=== PATIENT | female | born 1950 | race Caucasian/White ===

== ENCOUNTER → 2017-02-07 | Outpatient (CLI) | payer MEDICARE, OTHER ==
[~2017-02-07] MED LIST: ADVIL200 MG PO; ASPIR-TRIN325 MG PO; ASPIRIN325 MG PO; CORRECTOL5 MG PO; DELTASONE5 MG PO; DURAGESIC 25MC25 MCG TRANS; FLAGYL500 MG PO; FLEXERIL10 MG PO; GUAIFEN-CODEIN118 ML PO; LASIX40 MG PO; MAG119MX PO; MS CONTIN15 MG PO; NAPROSYN500 MG PO; OSCAL500 MG PO; PAIN RELIEVER325 MG PO; PROTONIX40 MG PO; SLEEP AID25 M1 PO; SLOW-MAG (64 MG1 TAB PO; STOOL SOFTENER100 MG PO; TYLENOL325 MG PO; ULTRAM50 MG PO; VANCOMYCIN125 MG/2.5 PO; ZOFRAN4 MG PO
== END | disposition disaster alternative care site (69) ==
LOC: GKIC 11:36
DX: C79.89 Secondary malignant neoplasm of other specified sites (principal); C79.51 Secondary malignant neoplasm of bone; C00-D49 Neoplasms; M89.8X8 Other specified disorders of bone, other site
CPT/HCPCS: A9552

== ENCOUNTER → 2017-02-20 | Outpatient (CLI) | payer MEDICARE, OTHER | LOC: GRAD 02-13 16:00 | DX: C00-D49 Neoplasms (principal); C79.51 Secondary malignant neoplasm of bone | CPT/HCPCS: A9577 ==

== ENCOUNTER → 2017-03-01 | Outpatient (CLI) | payer MEDICARE, OTHER ==
[2017-03-01 12:04] LABS: BASOPHIL # 0.1 K/uL (0.0-0.2); BASOPHIL % 1.8 %; EOSINOPHIL # 0.1 K/uL (0.0-0.5); EOSINOPHIL % 3.1 %; HEMATOCRIT 39.6 % (33.0-46.0); HEMOGLOBIN 12.1 g/dL (10.0-15.0); IMMATURE GRANULOCYTE % 0.5 %; LYMPHOCYTE # 0.8 K/uL (0.8-4.0); LYMPHOCYTE % 19.1 %; MCH 26.2 pg (27.0-34.0); MCHC 30.6 gm/dL (32.0-36.5); MCV 85.9 fl (83.0-98.0); MONOCYTE # 0.6 K/uL (0.0-1.0); MONOCYTE % 15.1 %; MPV 9.3 fl (9.4-12.4); NEUTROPHIL # (ANC) 2.4 K/uL (1.8-7.8); NEUTROPHIL % 60.4 %; NRBC % 0 /100WBC (0-0.00); PLATELET COUNT 327 K/uL (150-450); RBC 4.61 M/uL (3.50-5.50); RDW-CV 14.3 % (11.9-14.6); WBC 3.9 K/uL (4.0-11.0)
[2017-03-01 12:25] LABS: ALBUMIN 3.3 gm/dL (3.5-5.0); ALK PHOS 147 IU/L (33-138); ALT 31 IU/L (12-78); ANION GAP 11.1 (10.0-19.0); AST 33 IU/L (10-40); BLOOD UREA NITROGEN 11 mg/dL (6-24); CALCIUM 8.7 mg/dL (8.5-10.5); CHLORIDE 109 mMol/L (96-110); CO2 26 mMol/L (22-32); CREATININE 0.8 mg/dL (0.5-1.1); ESTIMATED GFR (MDRD EQUATION) > 60; POTASSIUM 4.1 mMol/L (3.7-5.1); SODIUM 142 mMol/L (135-145); TOTAL BILIRUBIN 0.4 mg/dL (0.0-1.5); TOTAL PROTEIN 7.4 g/dL (6.0-8.4)
== END | disposition disaster alternative care site (69) ==
LOC: GLAB 11:46
PROVIDERS: Family Medicine
DX: C00-D49 Neoplasms (principal); C79.51 Secondary malignant neoplasm of bone; R07.9 Chest pain, unspecified; R50.9 Fever, unspecified; R53.1 Weakness; R68.89 Other general symptoms and signs

== ENCOUNTER 2017-04-03 11:00 | Inpatient (IN) | payer MEDICARE, OTHER ==
[~2017-04-03] VITALS: Ht 170.2 cm; Wt 95.4 kg
--- NOTE | ~2017-04-03 | HP ---
PATIENT'S NAME: DWAINE FLOWERS [facility] AGE: 66 Y [address] ROOM: [place] [address] LOCATION: [facility] [place] ADMIT DATE: 04/03/2017 History & Physical DISCHARGE DATE: FAMILY PHYSICIAN: Dread Galeana MD ATTENDING PHYSICIAN: Chato Lane DATE OF SERVICE: CHIEF COMPLAINT: Neutropenia with fever. HISTORY OF PRESENTING ILLNESS: This 66-year-old white female with history of metastatic adenocarcinoma from the [place]'s gland, currently on chemotherapy and radiation, was sent to [facility] today by Dr. Lane with neutropenia and fever. Briefly, she was diagnosed with a gynecologic tumor in June 2016. She was subsequently determined to have adenocarcinoma originating in the [place]'s gland. She does have diffuse metastases to the bones. She has been undergoing radiation treatments and chemotherapy. Her last radiation treatment was on Saturday of this week, and she had chemo on Saturday. She complains that she has been feeling unwell for the last 9 days. She states that she was told that she would only feel sick for 4 days but just does not seem to be improving. She is noticing some increasing shortness of breath, fevers, chills, and intractable cough. Cough is productive of a thick phlegm, which she thinks is emanating from her esophagus. She also complains of significant pain in the mid chest with swallowing. She denies headache but does complain of feeling dizzy. No significant abdominal pain. Stools have been irregular. She last stooled a couple of days ago. She denies any urinary complaints. No numbness or tingling in her extremities, but she does have some diffuse itching and a rash over her chest and back. ALLERGIES: PENICILLIN AND LEVOFLOXACIN. ILLNESSES: 1. 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 2. Cervical cancer by history. 3. Obesity, status post gastric bypass in 1999. 4. Gastroesophageal reflux disease. 5. Chronic constipation. CURRENT MEDICATIONS: PATIENT'S NAME: DWAINE FLOWERS [facility] AGE: 66 Y [address] ROOM: [place] [address] LOCATION: [facility] [place] ADMIT DATE: 04/03/2017 History & Physical DISCHARGE DATE: FAMILY PHYSICIAN: Dread Galeana MD ATTENDING PHYSICIAN: Chato Lane 1. Carboplatin AUC 6 and paclitaxel every 21 days x6 cycles. 2. Fentanyl patch 25 mcg, change q.72 hours. 3. Nexium 20 mg p.o. daily. 4. T3 oral liquid p.r.n. 5. Decadron 4 mg before chemo. 6. Diclofenac 75 mg p.o. daily p.r.n. 7. Motrin 200 mg p.o. t.i.d. p.r.n. 8. Senna 2 tablets p.o. daily p.r.n. 9. Toviaz 8 mg p.o. daily. 10. Tramadol 50 mg p.o. q.i.d. p.r.n. FAMILY HISTORY: Significant for lung cancer in her father. Mother had osteoporosis and emphysema. SOCIAL HISTORY: She is a nonsmoker. She is and lives in [place]. She has no significant history of alcohol use. REVIEW OF SYSTEMS: As per HPI. All other organ systems reviewed and are negative. OBJECTIVE: VITAL SIGNS: Temperature 98.2, pulse 92, respirations are 26, blood pressure 100/67, O2 saturation 96% on room air. Weight is 209.6 pounds. GENERAL: She is frail, anxious, visibly dyspneic, but in no acute distress. SKIN: Supple, pink, warm, and dry. There is diffuse hyperemia about the chest and back with a diffuse maculopapular eruption. No vesiculations or bulla. HEENT: Otherwise, normocephalic. Sclerae nonicteric. Pupils equal, round, and reactive to light and accommodation. Extraocular movements appear intact. Nasal turbinates normal in appearance. Oropharynx clear. Mucous membranes are pink and moist. NECK: Supple. No masses or adenopathy. No thyromegaly. No JVD. CHEST: Wall is symmetrical. There is a port in the left chest. HEART: Regular with occasional extrasystoles. LUNGS: Diminished at the bases, coarse. No crackles or wheezes. No areas of consolidation. ABDOMEN: Soft, nontender. Bowel sounds present. No mass or hepatosplenomegaly. EXTREMITIES: Display trace pitting edema. No cyanosis. NEUROLOGICAL: Anxious but no focal deficits. LABORATORY AND X-RAY DATA: CBC from the clinic showed white blood cell count of 0.42, absolute neutrophil PATIENT'S NAME: DWAINE FLOWERS [facility] AGE: 66 Y [address] ROOM: [id number] [place], [place] [address] LOCATION: [facility] [place] ADMIT DATE: 04/03/2017 History & Physical DISCHARGE DATE: FAMILY PHYSICIAN: Dread Galeana MD ATTENDING PHYSICIAN: Chato Lane count of 200, hemoglobin is 11.0, hematocrit 32.6, platelets 124. Chemistries reveal BUN and creatinine of 8 and 0.6 respectively, sodium and potassium of 129 and 3.0, chloride and CO2 are 95 and 23, calcium was 8.7. AST and ALT of 40 and 51 respectively, bilirubin is 0.9. Glucose 132. ASSESSMENT AND PLAN: 1. Fever with neutropenia. We will admit to inpatient care. Dr. Lane has provided admission orders including antibiotic therapy with IV Zosyn, vancomycin, as well as antiviral therapy with acyclovir. Fluconazole is a reasonable addition given the symptoms of esophagitis (see below). We will provide supportive cares including some IV fluids and symptomatic treatment with Zofran for relief of nausea. We will await cultures and follow up on those when they are available. 2. Odynophagia with dysphagia, suspect severe esophagitis. Differential diagnosis includes radiation esophagitis versus infectious source. We will continue with some supportive cares and symptomatic treatments as outlined above. Additionally, we will add antibiotic therapy and antifungal therapy. If she is not improving, she may require endoscopic evaluation. 3. Dyspnea, subjective. She is saturating normally. Try to manage her pain and cough symptoms as above. Consider additional imaging evaluation if she is not improving. 4. Metastatic adenocarcinoma originating in the [place]'s gland, on chemotherapy and radiation. Plan to have Hematology continue to follow clinically. 5. Rash, not otherwise specified. I suspect this is primarily radiation induced. We will provide some symptomatic measures and clinical monitoring. 6. Moderate protein-calorie malnutrition. We will try to encourage balanced intake. We will start with clear liquids and advance as she tolerates. 7. Morbid obesity, status post gastric bypass surgery. As above, we will work toward long-term strategies for balanced dietary intake, increased exercise as she can tolerate, etc.. 8. Deep venous thrombosis prophylaxis. We will use low-dose Lovenox while she is inpatient. ZOE MD CARO TILLMAN/haroldo /[id number] D: [id number] T: [id number] HISTORY & PHYSICAL
--- NOTE | ~2017-04-03 | DS ---
PATIENT'S NAME: DWAINE FLOWERS [facility] AGE: 66 Y [address] ROOM: [place] [address] [place] [facility] [place] DATE: 04/03/2017 Discharge Summary DISCHARGE DATE: 04/06/2017 FAMILY PHYSICIAN: Dread Galeana MD ATTENDING PHYSICIAN: Chato Lane PRINCIPAL DIAGNOSES: 1. Neutropenic fever. 2. Metastatic adenocarcinoma, on chemo and radiation. 3. Gastroesophageal reflux disease. 4. Moderate obesity. 5. Odynophagia. BRIEF HOSPITAL COURSE: This is a 66-year-old female with history of metastatic adenocarcinoma from [place]'s gland, currently on chemo and radiation, presents from Dr. Lane's office with complaints of a fever while on chemo and radiation. The patient was admitted for workup of neutropenic fever. The patient had stayed afebrile past 72 hours. Workup including blood cultures, urinalysis, and urine studies have all turned out negative and did not show any obvious source of an infection. The patient at this point feels well and did not have any temperature spikes during her hospitalization. At this point, I am in agreement with Dr. Barrera's recommendation. The patient will be discharged without any antibiotics or antifungals, and she will follow up with Dr. Lane as previously scheduled. The patient is being discharged home in satisfactory condition. PHYSICAL EXAMINATION: GENERAL: The patient is awake, alert, oriented x3, in no acute distress. CHEST: Clear to auscultation bilaterally. HEART: S1, S2. Regular rate and rhythm. ABDOMEN: Soft, nontender, distended. EXTREMITIES: Trace edema. MEDICATIONS: Per JAN. DISPOSITION: Home, and will follow up with Dr. Lane. Less than 30 minutes was spent in discharge planning and facilitating. MD PJ RASCON/katarzynal PATIENT'S NAME: DWAINE FLOWERS [facility] AGE: 66 Y [address] ROOM: [place] [address] [place] [facility] DATE: 04/03/2017 Discharge Summary DISCHARGE DATE: 04/06/2017 FAMILY PHYSICIAN: Dread Galeaan MD ATTENDING PHYSICIAN: Chato Lane /[id number] d: 04/07/17 0111 t: 04/08/17 1202, DISCHARGE SUMMARY
[~2017-04-03 11:00] MED LIST changes: -ADVIL200 MG PO; -ASPIR-TRIN325 MG PO; -ASPIRIN325 MG PO; -CORRECTOL5 MG PO; -DELTASONE5 MG PO; -DURAGESIC 25MC25 MCG TRANS; -FLAGYL500 MG PO; -GUAIFEN-CODEIN118 ML PO; -LASIX40 MG PO; -MAG119MX PO; -MS CONTIN15 MG PO; -OSCAL500 MG PO; -PAIN RELIEVER325 MG PO; -PROTONIX40 MG PO; -SLEEP AID25 M1 PO; -SLOW-MAG (64 MG1 TAB PO; -STOOL SOFTENER100 MG PO; -TYLENOL325 MG PO; -VANCOMYCIN125 MG/2.5 PO; -ZOFRAN4 MG PO
--- NOTE | 2017-04-03 14:07 | NUR ---
PT is 66 y/o female admit for neutropenic fever for . Allergy to levaquin,PCN,and lactose intolerant. Red and yellow bracelets on. Resides at home with her . 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 Pt came from 's office today. Pt states she went to our ED on Saturday am with a fever of 101. She received IV fluids and was sent home. This am her fever was 102. While at 's office she received IV fluids and Zofran for nausea, and an IV antibiotic. Pt alert and oriented x3. and daughter at bedside.
[2017-04-03] MEDS ORDERED: GUAIFEN-CODEIN118 ML PO (14:37)
[2017-04-03] MEDS ORDERED: DURAGESIC 25MC25 MCG TRANS (14:38)
[2017-04-03] MEDS ORDERED: MAG119MX PO (14:41)
--- NOTE | 2017-04-03 19:20 | NUR ---
Significant event: Patient is alert and oriented x2. VSS. No fever. On room air. Gets short of breath with exertion. Does ambulate with walker and stand by assist. Has her own wash clothes that she uses for pads due to dribbling and she does not tolerate the plastic from regular pads/briefs. She does have an open area in the crack of her bottom, cleaned and moisture barrier applied. Has port to right chest with fluids running at 75mls/hr. Did have Zosyn 1450. Has been nauseous and vomiting small amounts. Does take meds whole, but it does take awhile to get them down. Is on a clear liquid diet. Has a small rash to mid back and chest from taking Levaquin, is healing. Cooperative with cares.
--- NOTE | 2017-04-04 04:50 | NUR ---
Significant Event:pt is a/o x3. pt is a 1 assist w/ walker and gaitbelt to bathroom. pt in neutropenic precautions. pt can run slightly tachycardic at times. pt has port to r chest w/ ns@ 75ml/hr. pt c/o nausea and got compazine w/ evening meds. pt does have open sore to coxyc. pt is clear liquid diet.pt has been afebrile and vss. Follow up:monitor for fevers
[2017-04-04 06:35] LABS: ALBUMIN 2.3 gm/dL (3.5-5.0); ALK PHOS 176 IU/L (33-138); ALT 31 IU/L (12-78); ANION GAP 13.6 (10.0-19.0); AST 26 IU/L (10-40); BLOOD UREA NITROGEN 6 mg/dL (6-24); CALCIUM 7.7 mg/dL (8.5-10.5); CHLORIDE 103 mMol/L (96-110); CO2 23 mMol/L (22-32); CREATININE 0.6 mg/dL (0.5-1.1); ESTIMATED GFR (MDRD EQUATION) > 60; SODIUM 137 mMol/L (135-145); TOTAL BILIRUBIN 0.6 mg/dL (0.0-1.5); TOTAL PROTEIN 5.7 g/dL (6.0-8.4)
[2017-04-04 06:36] LABS: POTASSIUM 2.6 mMol/L (3.7-5.1)
[2017-04-04 06:42] LABS: HEMOGLOBIN 8.7 g/dL (10.0-15.0); MCV 79.6 fl (83.0-98.0); MPV 11.1 fl (9.4-12.4); RDW-CV 15.4 % (11.9-14.6)
[2017-04-04 06:45] LABS: HEMATOCRIT 26.9 % (33.0-46.0); MCH 25.7 pg (27.0-34.0); MCHC 32.3 gm/dL (32.0-36.5); PLATELET COUNT 110 K/uL (150-450); RBC 3.38 M/uL (3.50-5.50)
[2017-04-04 07:53] LABS: ABSOLUTE NEUTROPHIL CT (ANC) 0.2 K/uL (1.8-7.8); LYMPHOCYTE # 0.1 K/uL (0.8-4.0); LYMPHOCYTE % 9 %; MONOCYTE # 0.6 K/uL (0.0-1.0); SEGMENTED NEUTROPHIL # 0.2 K/uL (1.8-7.8); SEGMENTED NEUTROPHIL % 23 %
--- NOTE | 2017-04-04 14:31 | NUR ---
Significant Event: Pt denies pain. Mild chest discomfort when swallowing and mild nausea but no vomitting. Compazine IV given x2 with good relief. Up with 1 assist. Continues in neutropenic precautions. K+ level 2.6, 20meq IV given and 40meq of oral liquid given. Advanced diet to regular. Port to left chest. Follow up:
--- NOTE | 2017-04-05 04:27 | NUR ---
SIGNIFICANT EVENT: Patient alert & oriented. Neutropenic precautions. 3 mod to lg loose stools this shift - order for CDiff test therefore, isolation precautions must be initiated per policy. At 2030 potassium level was 3.4. PC to MD - 40 mEq PO K+ x1 order. Port to L) chest - IV Fluids changed to NS with 40 mEq KCl at 100. 1PA with walker to BR. Advance diet as tolerated - regular diet. Tolerating clears at this time. VSS on RA. Compazine x1, last at 1934. Tramadol x1, last at 2144. Pleasant and cooperative with cares.
[2017-04-05 09:46] LABS: HEMATOCRIT 28.6 % (33.0-46.0); HEMOGLOBIN 9.2 g/dL (10.0-15.0); MCH 26.1 pg (27.0-34.0); MCHC 32.2 gm/dL (32.0-36.5); MPV 9.8 fl (9.4-12.4); PLATELET COUNT 128 K/uL (150-450); RBC 3.53 M/uL (3.50-5.50); RDW-CV 15.9 % (11.9-14.6); WBC 5.6 K/uL (4.0-11.0)
[2017-04-05 10:04] LABS: ALBUMIN 2.5 gm/dL (3.5-5.0); ALK PHOS 170 IU/L (33-138); ALT 31 IU/L (12-78); ANION GAP 11.7 (10.0-19.0); AST 24 IU/L (10-40); BLOOD UREA NITROGEN 3 mg/dL (6-24); CALCIUM 7.8 mg/dL (8.5-10.5); CHLORIDE 109 mMol/L (96-110); CO2 22 mMol/L (22-32); CREATININE 0.8 mg/dL (0.5-1.1); ESTIMATED GFR (MDRD EQUATION) > 60; POTASSIUM 3.7 mMol/L (3.7-5.1); SODIUM 139 mMol/L (135-145)
[2017-04-05 10:10] LABS: TOTAL BILIRUBIN 0.4 mg/dL (0.0-1.5)
[2017-04-05 10:32] LABS: BANDED NEUTROPHIL # 1.1 K/uL (0.0-0.1); BANDED NEUTROPHILS % 19 %; LYMPHOCYTE # 0.4 K/uL (0.8-4.0); LYMPHOCYTE % 8 %; SEGMENTED NEUTROPHIL # 2.9 K/uL (1.8-7.8); SEGMENTED NEUTROPHIL % 52 %
--- NOTE | 2017-04-05 12:43 | NUR ---
PATIENT DOING WELL. UP TO BATHROOM WITH STANDBY ASSIST. COMPAZINE AT 0730 FOR NAUSEA WITH RELIEF, DENIES PAIN, FENTANYL PATCH TO RIGHT ARM INTACT. LEFT CHEST PORT INFUSING AND PATENT. NEUTROPENIC PRECAUTIONS. C DIFF NEGATIVE. WBC 5.6. ANC 4.0. K+3.7. PATIENT HAS RASH TO BACK, LOTION APPLIED WITH RELIEF OF DISCOMFORT.
--- NOTE | 2017-04-05 15:50 | NUR ---
Significant Event: Took over cares at 1400. Up with 1 assist to the br. had 1 very small emesis this afternoon, she said her veggie burger was dry. Immodium given at 1315 for loose stools. Port left chest. Follow up:
--- NOTE | 2017-04-05 15:50 | NUR ---
SPOKE TO PATIENT REGARDING CM AND OUR ROLE. PATIENT LIVES IN OWN HOME WITH SPOUSE AND SHE IS PLANNING ON RETURNING THERE ONCE SHE IS READY FOR DISCHARGE WITH HELP FROM HER SPOUSE AND FAMILY. PATIENT DOES NOT ANTICIPATE ANY DISCHARGE NEEDS AT THIS TIME. CM WILL CONT TO FOLLOW NEEDED.
--- NOTE | 2017-04-06 05:55 | NUR ---
SIGNIFICANT EVENT: Patient alert & oriented. VSS on RA. UA obtained - results pending. Diet is advance as tolerated. 1PA walker. Patient has not had a fever but new order to get blood cultures if temp reaches 101.3. L) chest port infusing D51/2NS with 20 KCl. VSS on RA. Pleasant and cooperative with cares.
[2017-04-06 06:31] LABS: BILIRUBIN URINE NEGATIVE (NEGATIVE); BLOOD URINE 50 /UL (NEGATIVE); COLOR URINE YELLOW (YELLOW); GLUCOSE URINE NEGATIVE (NEGATIVE); KETONE URINE NEGATIVE (NEGATIVE); LEUKOCYTES URINE NEGATIVE /UL (NEGATIVE); NITRITE URINE NEGATIVE (NEGATIVE); PROTEIN URINE NEGATIVE (NEGATIVE); SPEC GRAVITY URINE 1.015 (1.003-1.035); TURBIDITY URINE CLEAR (CLEAR); UROBILINOGEN URINE NORMAL (NORMAL)
[2017-04-06 06:39] LABS: BACTERIA URINE NEGATIVE (NEGATIVE)
[2017-04-06 07:38] LABS: HEMATOCRIT 27.8 % (33.0-46.0); HEMOGLOBIN 8.8 g/dL (10.0-15.0); MCH 25.7 pg (27.0-34.0); MCHC 31.7 gm/dL (32.0-36.5); PLATELET COUNT 139 K/uL (150-450); RBC 3.43 M/uL (3.50-5.50); RDW-CV 16.2 % (11.9-14.6); WBC 10.6 K/uL (4.0-11.0)
[2017-04-06 07:54] LABS: ALBUMIN 2.4 gm/dL (3.5-5.0); ALK PHOS 174 IU/L (33-138); ALT 28 IU/L (12-78); ANION GAP 12.1 (10.0-19.0); AST 23 IU/L (10-40); CALCIUM 7.9 mg/dL (8.5-10.5); CHLORIDE 109 mMol/L (96-110); CO2 23 mMol/L (22-32); CREATININE 0.7 mg/dL (0.5-1.1); ESTIMATED GFR (MDRD EQUATION) > 60; POTASSIUM 4.1 mMol/L (3.7-5.1); SODIUM 140 mMol/L (135-145); TOTAL BILIRUBIN 0.4 mg/dL (0.0-1.5); TOTAL PROTEIN 5.6 g/dL (6.0-8.4)
[2017-04-06 07:55] LABS: BLOOD UREA NITROGEN 1 mg/dL (6-24)
[2017-04-06 08:15] LABS: ABSOLUTE NEUTROPHIL CT (ANC) 9.2 K/uL (1.8-7.8); BANDED NEUTROPHIL # 3.6 K/uL (0.0-0.1); BANDED NEUTROPHILS % 34 %; LYMPHOCYTE # 0.5 K/uL (0.8-4.0); LYMPHOCYTE % 5 %; MONOCYTE # 0.8 K/uL (0.0-1.0); SEGMENTED NEUTROPHIL # 5.6 K/uL (1.8-7.8); SEGMENTED NEUTROPHIL % 53 %
--- NOTE | 2017-04-11 10:04 | NUR ---
Met with patient at cancer center post discharge. She is getting hydration. She states she feels better since discharge and that she is doing okay. Will continue to follow as she comes in for fluids and radiation follow up appt.
== END 2017-04-06 15:37 | disposition disaster alternative care site (69) | DRG 809 ==
LOC: GMSU 12:29
PROVIDERS: Internal Medicine; Internal Medicine Hematology & Oncology; ADMIT Family Medicine
DX: D70.9 Neutropenia, unspecified (principal); C00-D49 Neoplasms; E44.0 Moderate protein-calorie malnutrition; C79.51 Secondary malignant neoplasm of bone; E66.01 Morbid (severe) obesity due to excess calories; R13.10 Dysphagia, unspecified; R50.81 Fever presenting with conditions classified elsewhere; C53.9 Malignant neoplasm of cervix uteri, unspecified; K59.09 Other constipation; Z92.3 Personal history of irradiation; K21.0 Gastro-esophageal reflux disease with esophagitis
CPT/HCPCS: C9113; J0780; J1447; J1642; J1650; J2405; J2543; J3370; J3480; J7030; J7040; J7050; J7120

== ENCOUNTER 2017-05-07 10:37 | Inpatient (IN) | payer MEDICARE, OTHER ==
[~2017-05-07] VITALS: Ht 170.2 cm; Wt 92.5 kg
--- NOTE | ~2017-05-07 | CON ---
PATIENT'S NAME: DWAINE FLOWERS [facility] AGE: 66 Y [address] ROOM: [place] [address] [place]: [facility] [place] ADMIT DATE: 05/07/2017 Consultation DISCHARGE DATE: FAMILY PHYSICIAN: Dread Galeana MD ATTENDING PHYSICIAN: Dread Galeana DATE OF CONSULTATION: 05/07/2017 REFERRING PHYSICIAN: Dread Galeana MD REASON FOR CONSULTATION: Rectal bleeding. HISTORY OF PRESENT ILLNESS: The patient is a very pleasant 66-year-old white female, with a history of metastatic adenocarcinoma of the [place] gland. Currently, on chemotherapy. She completed her radiation therapy about two months ago. She was sent to the [facility] because of rectal bleeding. She was diagnosed with gynecological tumor in June of 2016. She was subsequently found to have adenocarcinoma arising from the [place] gland. She does have diffuse metastases to the bone. She developed rectal bleeding last night. She had several bowel movements since then. She denies any history of diarrhea. She does have some abdominal discomfort. No high-grade fevers. ALLERGIES: TO PENICILLIN AND LEVOFLOXACIN. ILLNESSES: 1. She has metastatic adenocarcinoma of the [place] gland. 2. Cervical cancer by history. 3. Obesity, status post gastric bypass in 1999. 4. Gastroesophageal reflux disease. 5. Chronic constipation. CURRENT MEDICATIONS: Include 1. Tramadol. 2. Fentanyl. 3. Diphenhydramine. 4. Ibuprofen. 5. Bisacodyl. 6. Docusate sodium. 7. Doxylamine succinate. She has been on chemotherapy, and was last given chemotherapy done on Saturday last. PATIENT'S NAME: DWAINE FLOWERS [facility] AGE: 66 Y [address] ROOM: [address] [address] LOCATION: [facility] [place] ADMIT DATE: 05/07/2017 Consultation DISCHARGE DATE: FAMILY PHYSICIAN: Dread Galeana MD ATTENDING PHYSICIAN: Dread Galeana FAMILY HISTORY: Significant for lung cancer in the father and mother with osteoporosis and emphysema. SOCIAL HISTORY: She is a non-smoker and . She lives in [place]. No significant history of alcohol use. REVIEW OF SYSTEMS: As per history of present illness. A detailed review of systems was done, and found to be negative other than what is mentioned in the history of present illness and past medical history. PHYSICAL EXAMINATION: GENERAL: Today, she is alert and awake. She appears to be in mild distress. VITAL SIGNS: Showed temperature of 98.6, heart rate of 86 per minute, respirations of 14, and blood pressure of 118/82. NECK: No masses are felt. No thyromegaly is felt. HEAD, ENT, AND ORAL CAVITY: Normal. Revealed mild pallor. No icterus. CHEST: Clear to auscultation bilaterally. No wheezing or rhonchi. CARDIOVASCULAR: S1 and S2. Peripheral pulses are palpable and normal. MUSCULOSKELETAL: No obvious injuries or deformities are seen. NEUROLOGICAL: Grossly nonfocal. RECTAL: Deferred at this time. LABORATORY DATA AND DIAGNOSTIC STUDIES: Occult blood is positive. CT of the abdomen and pelvis was done. This showed extensive neoplastic bony involvement of the pelvis and worsening of the bone appearance with non- displaced sacral fractures, and wall thickenings at the sigmoid colon and rectum, which could reflect enteritis. Chest has no acute infiltrates. Complete blood count showed WBC of 2, hemoglobin of 8.9, hematocrit of 27.9, she has platelet count of 103, and absolute neutrophil count of 0.3. Complete metabolic screen showed sodium of 132, potassium of 3.4, chloride of 104, bicarb of 22, BUN of 5, creatinine of 0.6, albumin of 2.4, total bilirubin of 0.6, ALT of 27, AST of 35, and alkaline phosphatase of 225. IMPRESSION AND PLAN: The patient with a history of rectal bleeding. It could be related to radiation proctitis. The patient probably requires a flexible sigmoidoscopy. I would do this in consultation with the oncologists. The procedure of PATIENT'S NAME: DWAINE FLOWERS [facility] AGE: 66 Y [address] ROOM: [place] [address] LOCATION: [facility] [place] ADMIT DATE: 05/07/2017 Consultation DISCHARGE DATE: FAMILY PHYSICIAN: Dread Galeana MD ATTENDING PHYSICIAN: Dread Galeana flexible sigmoidoscopy was explained in detail to the patient. All risks including, but not limited to bleeding, perforation, and possible need for surgery were explained. Informed consent was then obtained. The patient also has absolute neutropenia. I will discuss this with the oncologists. Pending their permission, from there, we will be proceeding with the above mentioned procedure. Thank you once again for the courtesy of this consultation. MD VIRGINIA JONAS/haroldo /[id number] d: 05/08/17 0400 t: 05/09/17 1730, CONSULTATION REPORT
--- NOTE | ~2017-05-07 | ER ---
PATIENT'S NAME: DWAINE FLOWERS [facility] AGE: 66 Y [address] ROOM: [place] [address] LOCATION: [facility] [place] ADMIT DATE: 05/07/2017 ER/Outpatient Report DISCHARGE DATE: FAMILY PHYSICIAN: Dread Galeana MD ATTENDING PHYSICIAN: Dread Galeana Time of Arrival: 10:37. Time of Evaluation: 11:10. CHIEF COMPLAINT: Rectal bleeding. HISTORY OF PRESENT ILLNESS: The patient is a 66-year-old female, who presents to the emergency department today with a chief complaint of rectal bleeding. She reports that this started today. The patient reports it is bright red blood. She is passing clots. She has no history of similar episodes in the past. Denies any fevers or chills. Does have some nausea, vomiting x2. Has had some constipation. She does report she has a history of some hemorrhoids. Denies any urinary symptoms. Has had some sharp chest pain and shortness of breath as well. She has a cough with phlegm. She does report she has been feeling weak. She did get IV fluids yesterday in the office. PAST MEDICAL HISTORY: Metastatic adenocarcinoma of the [place]'s gland, cervical cancer, obesity, gastroesophageal reflux disease, chronic constipation. PAST SURGICAL HISTORY: Gastric bypass. SOCIAL HISTORY: The patient is nonsmoker. Denies any alcohol or illicit drug use. ALLERGIES: PENICILLIN AND LEVOFLOXACIN. MEDICATIONS: Please see list. PRIMARY CARE DOCTOR: Dr. Dread Galeana. REVIEW OF SYSTEMS: All systems are reviewed by myself are negative with the exception of those discussed in HPI and past medical history. PATIENT'S NAME: DWAINE FLOWERS [facility] AGE: 66 Y [address] ROOM: [address] [address] LOCATION: [facility] [place] ADMIT DATE: 05/07/2017 ER/Outpatient Report DISCHARGE DATE: FAMILY PHYSICIAN: Dread Galeana MD ATTENDING PHYSICIAN: Dread Galeana PHYSICAL EXAMINATION: VITAL SIGNS: Weight 201 pounds. Blood pressure 116/65, pulse 97, respiratory rate 20, temperature 99.5, oxygen saturation 100% on room air. GENERAL: The patient is a 66-year-old female, appears stated age, in no acute distress. HEENT: Normocephalic, atraumatic. Pupils are equal, round, and reactive to light. Oropharynx is clear. NECK: Supple. There is no nuchal rigidity. CARDIOVASCULAR: Regular rate and rhythm. No murmurs, rubs, or gallops. LUNGS: Clear to auscultation bilaterally. No wheezes, rales, or rhonchi. ABDOMEN: Soft, with mild to moderate diffuse tenderness to palpation. There is no rebound, rigidity, or guarding. Positive bowel sounds. RECTAL: The patient does have some mild tenderness to palpation on rectal exam, with some external hemorrhoids noted. She does have dark stool with mixture of positive bright red blood. MUSCULOSKELETAL: The patient moves all 4 extremities. SKIN: Warm and dry. LABORATORY DATA AND X-RAYS: Labs and x-rays are obtained. EKG is obtained, interpreted by myself, shows sinus rhythm with a rate of 85, normal axis, normal interval. No ST elevation, ST depression, or T-wave inversions. CMP is unremarkable, except for potassium 3.4, alkaline phosphatase 225. LFTs are normal. CK is normal. CK-MB is normal. Troponin is less than 0.04. CBC: White blood cell count 2.0, hemoglobin 8.9, hematocrit 27.9, platelet 103. INR is normal. Occult blood is positive. CT scan of the abdomen and pelvis was obtained. I have discussed the results with the radiologist. There is extensive neoplastic bone involving the pelvis with worsening in the bone appearance since previous imaging. There is nondisplaced sacral fracture. There is wall thickening in the sigmoid colon and the rectum. There is a small volume of free fluid in the pelvis. There is no free air or bowel obstruction. There is bone lesion in T9 transverse process. There is also a small nodule at the right lung base. IMPRESSION: 1. Gastrointestinal bleeding. 2. Neutropenia. 3. Chronic anemia. 4. Abdominal pain, generalized, diffuse, nonsurgical with wall thickening of the sigmoid colon and rectum. 5. Extensive neoplastic bone involvement. 6. Nondisplaced sacral fractures. 7. Right lung base nodule. PATIENT'S NAME: DWAINE FLOWERS [facility] AGE: 66 Y [address] ROOM: [address] [address] LOCATION: [facility] [place] ADMIT DATE: 05/07/2017 ER/Outpatient Report DISCHARGE DATE: FAMILY PHYSICIAN: Dread Galeana MD ATTENDING PHYSICIAN: Dread Galeana EMERGENCY DEPARTMENT COURSE: The patient brought back to the examination room. Seen and evaluated by myself. IV is established. Laboratory analysis and imaging are obtained as described above. The patient is given a liter of normal saline. Orthostatic vital signs are obtained lying down patient is 119/66 with a pulse of 91; sitting 107/69 with pulse of 98; standing 91/43 with a pulse of 100. The patient is also given Tylenol p.o. She is given 4 mg of Zofran IV. I have discussed the results with the patient and her friend who is at the bedside. I have recommended admission to the hospital for further evaluation, treatment, and management. The patient is agreeable. I have contacted Dr. Galeana. He does agree to accept the patient for further evaluation, treatment, and management. DISPOSITION: The patient is admitted under the care of Dr. Galeana in stable condition. DO EDGAR WHITE/modl /[id number] d: 05/07/17 2228 t: 05/08/17 0931, OUTPATIENT REPORT
--- NOTE | ~2017-05-07 | DS ---
PATIENT'S NAME: DWAINE IVEY [facility] AGE: 66 Y [address] 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 The patient enters the hospital at this time with bright red rectal bleeding of about 24 hours duration. It slowed down quite a bit and at this time, the patient is eating and drinking normal. She had underwent a sigmoidoscopy, courtesy of Dr. Mar, who states that she is suffering from radiation proctitis and hopefully this can be controlled with therapy that he has prescribed. We have told Dwaine, of course, that keeping her stools soft and drinking lots of fluids are to her advantage. We will continue with her current medications that she got in the hospital with and adding any necessary pain medications. At choice and I have her on a weekly CBC to watch her counts as she is currently undergoing her second round of chemotherapy and seems to be tolerated better this after the second chemotherapeutic regimen that she underwent approximately a week ago. She had less of the tiredness, nausea after the second time course than she did with the first one some 3 weeks before. Dwaine's attitude remains exemplary. It is a pleasant to work with her. She currently has a daughter here for 2 or 3 days, visiting her. Her has been gone, is returning today. She has a great support group in [place] and she was a pleasure to work with trying to make her as comfortable as possible. 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 MD AYANNA PARTIDA/modl /[id number] d: 05/10/17 1304 t: 05/15/17 1213, DISCHARGE SUMMARY
--- NOTE | ~2017-05-07 | CON ---
PATIENT'S NAME: FLOR IVEY [facility] AGE: 66 Y [address] ROOM: [address] [place], [place] [address] LOCATION: [facility] [place] ADMIT DATE: 05/07/2017 Consultation DISCHARGE DATE: 05/09/2017 FAMILY PHYSICIAN: Dread Galeana MD ATTENDING PHYSICIAN: Dread Galeana Consultation to Dr. Dread Galeana. 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 HISTORY OF THE PRESENT ILLNESS: From the patient who is a good historian; one of her friends; and review of the old [facility] record; and the past [facility] record. The [facility] progress note from 04/30/2017 is informative and is appended to the chart. The patient is currently on day 6 of her second cycle of paclitaxel plus carboplatin for her adenocarcinoma of the [place]'s gland, which has recurred. The patient has responded with excellent resolution of urinary incontinence. It has been possible to remove her Randall catheter. The patient's first cycle was complicated by a neutropenic fever and her second cycle was delayed for 2 weeks due to neutropenia and weakness. On 04/30/2017, the second cycle was initiated with a decreased carboplatin dose to AUC of 4. The paclitaxel dose was not reduced. Pegfilgrastim was initiated. The patient was doing well on day 1 cycle 2. However, she developed hematochezia on day 8 of the cycle and reported to the emergency room where she was evaluated by Dr. Rodriguez. In the emergency room, the white count was 2000 with 9 segs and 7 bands, the hemoglobin was 8.9, the MCV 85, the platelets 103,000. The INR was 1.1, the PTT was 29. The general chemical profile revealed the glucose was 122, the alkaline phosphatase 225, the albumin 2.4. The patient's EGFR was greater than 60. The urinalysis was not obtained. Stool for occult blood was positive x2. A CAT scan of the abdomen and pelvis was performed, it was compared to a PET scan on 02/07/2017. There was a persistent lytic lesion at the T9 right transverse process. There was a 4-mm nodule at the posterior right lower lobe lung base. There was a homogeneous contrast excretion by kidneys. Peripelvic cyst was noted in the inferior aspect of the left kidney. The patient had some wall thickening in the sigmoid colon and rectum, compatible with changes of enteritis. There was soft tissue thickening of the presacral area and a small volume of free fluid in the pelvis with multiple lytic lesions in the patient's bony pelvis. There was a 5.5 cm diameter expansile lytic bone lesions in the left superior pubic ramus, increased in size since the prior imaging. There was also a destructive lesion at the left PATIENT'S NAME: FLOR IVEY [facility] AGE: 66 Y [address] ROOM: [address] [address] LOCATION: [facility] ADMIT DATE: 05/07/2017 Consultation DISCHARGE DATE: 05/09/2017 FAMILY PHYSICIAN: Dread Galeana MD ATTENDING PHYSICIAN: Dread Galeana acetabulum, increased since the prior study. There was wall thickening of the sigmoid colon and rectum, compatible with post radiation therapy inflammation. Dr. Galeana admitted the patient. He started parenteral medications. He consulted Dr. Mar who recommended a flexible sigmoidoscopy with possible cautery. The patient makes a point that her hematochezia did start on day 6 and she had some diarrhea every hour for most of the night. She had no cramping. She had nausea, particularly if she coughed up phlegm. She had some fecal incontinence. She called Dr. Galeana who directed her to the emergency room where she was hospitalized. She has also had orthostatic disequilibrium with no falls and dyspnea on exertion walking to the bathroom. She has had no odynophagia. Radiation therapy to the spine was completed 2 months ago. She has distal paresthesias that make it hard for her to have write and talk. On 05/09/2017, Dr. Mar did perform a flexible sigmoidoscopy. The flexible sigmoidoscopy noted, just inside the anal rectal verge fresh blood extending to about the transverse colon. There were findings of hypervascularity, AV malformations and friability, very suggestive of severe radiation proctitis. Multiple biopsies were done. Similar findings were seen up to the descending colon to about 30 cm from the anorectal verge though progressive decreasing severity. The lesions in the rectum were ablated using an APC probe coagulation on recommended setting. Adequate hemostasis was noted. Stool was mixed with blood up into the mid transverse colon, likely due to reflux of blood from the left colon. There was blood beyond the mid transverse colon and was of similar color. 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 ACUTE MEDICAL ILLNESS RESOLVED, PAST SURGERIES, INJURIES: 1. 1978-KAREEN. 2. 1999-cholecystectomy and gastric bypass for weight loss. 3. LASIK eye surgery. 4. Cystoscopy with retrograde. 5. The patient received 6480 cGy to the pelvis which was finished on 10/24/2016. MEDICATIONS UPON HOSPITALIZATION: 1. APAP. 2. Bisacodyl. 3. Docusate. 4. Doxylamine. 5. Fentanyl. PATIENT'S NAME: FLOR IVEY [facility] AGE: 66 Y [address] ROOM: [place] [address] LOCATION: [facility] [place] ADMIT DATE: 05/07/2017 Consultation DISCHARGE DATE: 05/09/2017 FAMILY PHYSICIAN: Dread Galeana MD ATTENDING PHYSICIAN: Dread Galeana 6. Ibuprofen. 7. Ondansetron. 8. Tramadol. ADVERSE REACTIONS TO MEDICATIONS, TRANSFUSIONS, ALLERGIES: 1. Penicillin. 2. Levofloxacin. 3. Latex. SOCIAL HISTORY: The patient lives in [place], [place] with her . REVIEW OF SYMPTOMS: Negative other than those noted in the history of the present illness. PHYSICAL EXAMINATION: VITAL SIGNS: Pulse 84 and regular, blood pressure 125/70, respiratory rate 18, temperature 98.3, height 67 inches, weight 93.1 kg (205 pounds), and BMI 32.1 kg/m2. GENERAL: Well-developed, obese, 66-year-old, female, in no acute distress. HEENT: Unremarkable. LYMPH NODES: There may be some small left inguinal lymph nodes. NECK: Without JVD or carotid bruits. CHEST: Clear. CV: Regular rhythm. No murmurs, bruits, or adventitious sounds. ABDOMEN: No masses, tenderness, or megaly. EXTREMITIES: Without peripheral edema. GENITALIA AND RECTAL: Not examined. IMPRESSION: 1. Adenocarcinoma of [place]'s gland, apparently responding to therapy. 2. Hematochezia is probably due to radiation therapy, as it has been more than 6 months since radiation therapy was finished. The changes were segmental on the scan. We need to keep in mind paclitaxel alone can lead to severe colitis but we might expect paclitaxel-related colitis to be more diffuse. There may be some synergy between radiation and paclitaxel. RECOMMEND: DIAGNOSTIC: 1. Return to clinic as already scheduled. 2. Blood work already scheduled. TREATMENT: 1. Continue treatment as per Gastroenterology. 2. We will have to consider modifying paclitaxel if it continues to be PATIENT'S NAME: FLOR IVEY [facility] AGE: 66 Y [address] ROOM: [address] [address] LOCATION: [facility] ADMIT DATE: 05/07/2017 Consultation DISCHARGE DATE: 05/09/2017 FAMILY PHYSICIAN: Dread Galeana MD ATTENDING PHYSICIAN: Dread Galeana associated with exacerbations of the presumed radiation proctitis. PATIENT EDUCATION: Discussed these considerations. EVELIN RYAN MD GKB/modl /[id number] CC: MD Delia Avalos MD d: 05/10/17 0147 t: 05/10/17 1756, CONSULTATION REPORT
--- NOTE | ~2017-05-07 | HP ---
PATIENT'S NAME: FLOR IVEY [facility] AGE: 66 Y [address] 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 She has been treated with surgical excision, radiation and chemotherapy, and she is on her second goal round of chemotherapy at this particular time for the cancer that seems to continue and has continued to progress with metastases to the bony areas and other abdominal organs. The patient recently began having blood in her stool on Saturday night, sought my attention on Saturday morning. I sent her to the ER where she had more bloody stools. CT scan was done and of course noted the advancing cancerous tumors; however, no particular diagnostic etiology of the bleeding was identified on the CT scan. Actually, the patient's hemodynamics are very important where she is on chemotherapy and her hemoglobin in the 8.8 or 9 range was of concern with her bleeding, so we elected to hospitalize her. PAST MEDICAL HISTORY: The patient had cancer of the uterus, I believe, in the 70s with a resection. Had followups that never elicited any future disease until recently, of course whether or not it is connected remains a question. The patient otherwise has had a rather uneventful medical history. 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 This patient stated that she has had hemorrhoidal disease in the past and has had episodes of bleeding. She has not had any recently; however, she does note that she has never experienced any bleeding as heavy as which she is experiencing at this time. MEDICATIONS: Current medicines are as per the chart. The patient is on a fentanyl patch 25. Takes tramadol at bedtime. Takes some Tylenol. Takes some magic mouthwash. Has recently had her second followup chemotherapy treatment, and she had had the second one that was tolerated with less discomfort and tiredness than the first one 3 weeks prior. The patient sees Dr. Rose, of course myself, and Dr. Lane on a regular basis. SOCIAL HISTORY: PATIENT'S NAME: FLOR IVEY [facility] AGE: 66 Y [address] ROOM: [address] [address] LOCATION: [facility] [place] ADMIT DATE: 05/07/2017 History & Physical DISCHARGE DATE: FAMILY PHYSICIAN: Dread Galeana MD ATTENDING PHYSICIAN: Dread Galeana She lives in [place], [place], with her and her in-law. PHYSICAL EXAMINATION: GENERAL: Flor Ivey is an attractive, 66-year-old white female, somewhat pale at this time. Actually quite concerned, but always has a big smile on her face and moving forward. She is alert, cooperative, pleasant to interview, and oriented x3. HEENT: Head inspection reveals a cap placed on her head since she has recently lost most of her hair. Eyes: Extraocular muscles intact. Pupils equally round and reactive to light. Posterior pharynx is clear. Some serous drainage, dry. Nasal mucosa normal. Carotids equally palpable. No masses. Bruits are not auscultated. NECK: Not auscultated. CHEST AND BACK: Lungs are clear. HEART: Sounds are irregularly irregular. ABDOMEN: Bowel sounds are present. Some generalized lower abdominal tenderness was present. No distinct masses were noted. No referred rebound was present. PELVIC AND RECTAL: Not performed. EXTREMITIES: Adequate peripheral circulation. SKIN: Warm and dry. IMPRESSION: Bright red rectal bleeding, concerns being on chemotherapy and the somewhat depleted hemoglobin of 8.8, although it has not changed from her last reading. [place]'s gland cancer which has metastasized and continuously evolved. PLAN: Plan of action for this patient includes hospitalization with fluid replacement, rest, hydration, appropriate calorie intake, relief with any nausea, vomiting, or pain of course the oncology folks probably Dr. Barrera, and we will also have Dr. Mar from our GI service help out and see her. I have talked to her about these people, she is aware of them. She is going to visit with them, and I told her time that they are available to help her out. MD AYANNA PARTIDA/haroldo /[id number] D: [id number] T: [id number] HISTORY & PHYSICAL
[~2017-05-07 10:37] MED LIST changes: +DURAGESIC 25MC25 MCG TRANS; +GUAIFEN-CODEIN118 ML PO; +MAG119MX PO
[2017-05-07 11:47] LABS: HEMATOCRIT 27.9 % (33.0-46.0); HEMOGLOBIN 8.9 g/dL (10.0-15.0); MCH 27.1 pg (27.0-34.0); MCHC 31.9 gm/dL (32.0-36.5); MCV 84.8 fl (83.0-98.0); MPV 11.3 fl (9.4-12.4); RBC 3.29 M/uL (3.50-5.50)
[2017-05-07 11:50] LABS: PLATELET COUNT 103 K/uL (150-450); RDW-CV 20.8 % (11.9-14.6)
[2017-05-07 11:57] LABS: INR - (THERAPEUTIC) 1.08 (0.92-1.07); PROTIME 11.3 SECONDS (9.8-11.4); PTT 29 SECONDS (25-32)
[2017-05-07 12:05] LABS: ALBUMIN 2.4 gm/dL (3.5-5.0); ALK PHOS 225 IU/L (33-138); ALT 27 IU/L (12-78); ANION GAP 13.4 (10.0-19.0); AST 35 IU/L (10-40); BLOOD UREA NITROGEN 5 mg/dL (6-24); CALCIUM 7.9 mg/dL (8.5-10.5); CHLORIDE 104 mMol/L (96-110); CO2 22 mMol/L (22-32); CPK 31 IU/L (21-215); CREATININE 0.6 mg/dL (0.5-1.1); ESTIMATED GFR (MDRD EQUATION) > 60; POTASSIUM 3.4 mMol/L (3.7-5.1); SODIUM 136 mMol/L (135-145); TOTAL PROTEIN 6.1 g/dL (6.0-8.4)
[2017-05-07 12:12] LABS: TOTAL BILIRUBIN 0.6 mg/dL (0.0-1.5)
[2017-05-07 12:47] LABS: ABSOLUTE NEUTROPHIL CT (ANC) 0.3 K/uL (1.8-7.8); BANDED NEUTROPHIL # 0.2 K/uL (0.0-0.1); BANDED NEUTROPHILS % 9 %; LYMPHOCYTE # 0.9 K/uL (0.8-4.0); LYMPHOCYTE % 46 %; MONOCYTE # 0.7 K/uL (0.0-1.0); SEGMENTED NEUTROPHIL # 0.1 K/uL (1.8-7.8); SEGMENTED NEUTROPHIL % 7 %
[2017-05-07] MEDS ORDERED: ADVIL200 MG PO (16:09)
[2017-05-08 05:14] LABS: INR - (THERAPEUTIC) 1.06 (0.92-1.07); PROTIME 11.1 SECONDS (9.8-11.4)
[2017-05-08 05:18] LABS: ALBUMIN 2.3 gm/dL (3.5-5.0); ALK PHOS 195 IU/L (33-138); ALT 25 IU/L (12-78); ANION GAP 11.7 (10.0-19.0); AST 30 IU/L (10-40); BLOOD UREA NITROGEN 4 mg/dL (6-24); CALCIUM 7.6 mg/dL (8.5-10.5); CHLORIDE 105 mMol/L (96-110); CO2 25 mMol/L (22-32); CREATININE 0.5 mg/dL (0.5-1.1); ESTIMATED GFR (MDRD EQUATION) > 60; POTASSIUM 3.7 mMol/L (3.7-5.1); SODIUM 138 mMol/L (135-145); TOTAL PROTEIN 5.6 g/dL (6.0-8.4)
[2017-05-08 05:19] LABS: TOTAL BILIRUBIN 0.4 mg/dL (0.0-1.5)
[2017-05-08 05:27] LABS: HEMATOCRIT 25.6 % (33.0-46.0); HEMOGLOBIN 8.1 g/dL (10.0-15.0); MCHC 31.6 gm/dL (32.0-36.5); MCV 85.3 fl (83.0-98.0); MPV 12.2 fl (9.4-12.4); PLATELET COUNT 107 K/uL (150-450); RDW-CV 21.1 % (11.9-14.6); WBC 4.5 K/uL (4.0-11.0)
[2017-05-08 06:01] LABS: ABSOLUTE NEUTROPHIL CT (ANC) 2.3 K/uL (1.8-7.8); BANDED NEUTROPHIL # 1.3 K/uL (0.0-0.1); BANDED NEUTROPHILS % 28 %; LYMPHOCYTE # 1.2 K/uL (0.8-4.0); LYMPHOCYTE % 26 %; MONOCYTE # 0.8 K/uL (0.0-1.0); SEGMENTED NEUTROPHIL % 22 %
[2017-05-09 05:35] LABS: ALBUMIN 2.3 gm/dL (3.5-5.0); ALK PHOS 197 IU/L (33-138); ALT 23 IU/L (12-78); ANION GAP 11.7 (10.0-19.0); AST 31 IU/L (10-40); BLOOD UREA NITROGEN 4 mg/dL (6-24); CALCIUM 7.7 mg/dL (8.5-10.5); CHLORIDE 107 mMol/L (96-110); CO2 24 mMol/L (22-32); CREATININE 0.5 mg/dL (0.5-1.1); ESTIMATED GFR (MDRD EQUATION) > 60; POTASSIUM 3.7 mMol/L (3.7-5.1); SODIUM 139 mMol/L (135-145); TOTAL BILIRUBIN 0.4 mg/dL (0.0-1.5); TOTAL PROTEIN 5.5 g/dL (6.0-8.4)
[2017-05-09 05:42] LABS: HEMATOCRIT 24.4 % (33.0-46.0); MCH 27.1 pg (27.0-34.0); MCV 84.7 fl (83.0-98.0); PLATELET COUNT 110 K/uL (150-450); RBC 2.88 M/uL (3.50-5.50); RDW-CV 21.2 % (11.9-14.6); WBC 9.1 K/uL (4.0-11.0)
[2017-05-09 05:46] LABS: HEMOGLOBIN 7.8 g/dL (10.0-15.0)
[2017-05-09 06:14] LABS: ABSOLUTE NEUTROPHIL CT (ANC) 6.8 K/uL (1.8-7.8); BANDED NEUTROPHIL # 2.5 K/uL (0.0-0.1); BANDED NEUTROPHILS % 27 %; LYMPHOCYTE # 0.5 K/uL (0.8-4.0); LYMPHOCYTE % 6 %; MONOCYTE # 1.1 K/uL (0.0-1.0); SEGMENTED NEUTROPHIL # 4.4 K/uL (1.8-7.8); SEGMENTED NEUTROPHIL % 48 %
[2017-05-09] MEDS ORDERED: ZOFRAN4 MG PO (08:39)
== END 2017-05-09 17:15 | disposition disaster alternative care site (69) | DRG 393 ==
LOC: GMED 10:37 → GMSU 15:03
PROVIDERS: Emergency Medicine; Internal Medicine Gastroenterology; ADMIT Family Medicine
PROC: 0DBP8ZX Excision of Rectum, Via Natural or Artificial Opening Endoscopic, Diagnostic (ICD-10-PCS; principal; 2017-05-09)
DX: K62.7 Radiation proctitis (principal); D61.810 Antineoplastic chemotherapy induced pancytopenia; S32.10XA Unspecified fracture of sacrum, initial encounter for closed fracture; D70.9 Neutropenia, unspecified; C79.51 Secondary malignant neoplasm of bone; C53.9 Malignant neoplasm of cervix uteri, unspecified; D64.9 Anemia, unspecified; M84.550 Pathological fracture in neoplastic disease, pelvis; E66.9 Obesity, unspecified; K21.9 Gastro-esophageal reflux disease without esophagitis; K59.09 Other constipation
CPT/HCPCS: J2405; J3480; J7030; Q0162; Q9967

== ENCOUNTER → 2017-05-16 | Day surgery (SDC) | payer MEDICARE, OTHER ==
[~2017-05-16] VITALS: Ht 170.2 cm; Wt 96.0 kg
[~2017-05-16] MED LIST changes: +ADVIL200 MG PO; +ASPIR-TRIN325 MG PO; +ASPIRIN325 MG PO; +CORRECTOL5 MG PO; +DELTASONE5 MG PO; +FLAGYL500 MG PO; +LASIX40 MG PO; +MS CONTIN15 MG PO; +OSCAL500 MG PO; +PAIN RELIEVER325 MG PO; +PROTONIX40 MG PO; +SLEEP AID25 M1 PO; +SLOW-MAG (64 MG1 TAB PO; +STOOL SOFTENER100 MG PO; +TYLENOL325 MG PO; +VANCOMYCIN125 MG/2.5 PO; +ZOFRAN4 MG PO
[2017-05-16 08:39] LABS: HEMATOCRIT 23.8 % (33.0-46.0); MPV 9.9 fl (9.4-12.4); RBC 2.67 M/uL (3.50-5.50); WBC 3.4 K/uL (4.0-11.0)
[2017-05-16 08:40] LABS: HEMOGLOBIN 7.6 g/dL (10.0-15.0); MCH 28.5 pg (27.0-34.0); MCHC 31.9 gm/dL (32.0-36.5); MCV 89.1 fl (83.0-98.0); PLATELET COUNT 201 K/uL (150-450)
[2017-05-16 09:48] LABS: ABSOLUTE NEUTROPHIL CT (ANC) 2.2 K/uL (1.8-7.8); BANDED NEUTROPHIL # 0.1 K/uL (0.0-0.1); BANDED NEUTROPHILS % 2 %; LYMPHOCYTE # 0.5 K/uL (0.8-4.0); LYMPHOCYTE % 15 %; MONOCYTE # 0.6 K/uL (0.0-1.0); SEGMENTED NEUTROPHIL # 2.1 K/uL (1.8-7.8); SEGMENTED NEUTROPHIL % 63 %
== END | disposition disaster alternative care site (69) ==
LOC: GEND 07:42 → GOPP 08:00
PROVIDERS: Internal Medicine Gastroenterology
PROC: 0DJD8ZZ Inspection of Lower Intestinal Tract, Via Natural or Artificial Opening Endoscopic (ICD-10-PCS; principal; 2017-05-16)
DX: K62.5 Hemorrhage of anus and rectum (principal); K59.09 Other constipation; C79.19 Secondary malignant neoplasm of other urinary organs; K21.9 Gastro-esophageal reflux disease without esophagitis; E66.9 Obesity, unspecified; Z68.33 Body mass index [BMI] 33.0-33.9, adult; Z85.41 Personal history of malignant neoplasm of cervix uteri; Z88.0 Allergy status to penicillin; Z88.1 Allergy status to other antibiotic agents
CPT/HCPCS: J1642; J2001; J3010; J7030

== ENCOUNTER 2017-05-27 14:44 | Inpatient (IN) | payer MEDICARE, OTHER ==
[~2017-05-27] VITALS: Ht 170.2 cm; Wt 96.0 kg
--- NOTE | ~2017-05-27 | DS ---
PATIENT'S NAME: DWAINE IVEY [facility] AGE: 66 Y [address] ROOM: [id number] [place], [place] [address] LOCATION: [facility] ADMIT DATE: 05/27/2017 Discharge Summary DISCHARGE DATE: 05/31/2017 FAMILY PHYSICIAN: Ladan Galeana MD ATTENDING PHYSICIAN: Ladan Galeana Dwaine Ivey entered the hospital with rectal bleeding and a number of loose stools. She has been suffering from erosive proctitis secondary to chemotherapy for [place] gland cancer. She has had several episodes of bleeding over the past couple of months. The patient entered the hospital with excessive bleeding again. Her hemoglobin on the way was in the 6.5 region, white count was 500 as she is currently on her second regimen of chemotherapy for her cancer. The patient had been doing reasonably well and she had been free of rectal bleeding for approximately 3 or 4 weeks. The patient entered the hospital, appropriate fluid therapy was given, immediately ordered 2 units to be typed and crossmatched irradiated, and then administered to the patient. The patient was not in a great deal of pain, but analgesics were available. The patient had some decrease in appetite. Diet was limited originally to liquids. Due to the low white blood count and also the anemia, I was contacted Dr. Lane's group and Dr. Barrera followed along in the hospital. However, originally, Dr. Madrigal called a few orders in until Dr. Barrera was able to see the patient shortly after her admission on the following day. I did not feel the patient was ever in any acute danger. The patient and her family of course are very concerned about this rectal bleeding and they were concerned about perhaps having another round of therapy by the GI team, who have cauterized these bleeders for her in the past. However, it was a consensus of opinion that now it was not the right time to approach that where she was very short on white cells and red cells. The patient responded with initial blood where hemoglobin up towards 8, but then it continued to fall. The patient was also started on some antibiotics by the Hematology Team due to the low white blood count, but within a short period of time, the patient began to have a great deal of increased number of stools. C. difficile test was ordered and the patient did have a positive C. difficile exam. For this reason, visit with the Hematology Team again and they elected to switch to oral vancomycin, which the patient seemed to tolerate it. However, of course the diarrhea continued, the patient was uncomfortable, and asked for some Imodium. I elected to treat her with some MS per IV avoiding the stomach and GI system, and giving the MS course within a short period of time, the MS could halt to the diarrhea and number of stools diminished considerably to the point where the patient will only have one or two loose stools for 24 hours. As the diarrhea has slowed down, the patient's fluid status was reassessed. Her hemoglobin had fallen into the low 7s I believe and I elected to give her 2 more units of blood and we ended up with a finalized hemoglobin of around 9, which was at the point she left the hospital. White blood count continued to rise during her hospitalization and I noticed on the day of admission it was PATIENT'S NAME: DWAINE IVEY [facility] AGE: 66 Y [address] ROOM: [place] [address] LOCATION: [facility] ADMIT DATE: 05/27/2017 Discharge Summary DISCHARGE DATE: 05/31/2017 FAMILY PHYSICIAN: Ladan Galeana MD ATTENDING PHYSICIAN: Ladan Galeana as high as 18.3, which I hope and assume it was due to the C. difficile that she is currently doing by the way. By the third day, the patient was feeling much improved, wanted to eat and drink more. We started with fluids and she rapidly advanced her diet and did well with this. She is only having one stool a day, but still watery and tinged with blood, but she felt much better when she is not having multiple stools per hour. The patient was anxious to go home, but it was also still concerned about having the rectal proctitis, bleeding cauterized. We have checked again with Oncology and the GI people and once again the consensus was that this was not the appropriate time to pursue that, we explained this as best we could to the patient and her family. The patient is going home at this time and I am going to elect to give her some MS approximately half an hour to 45 minutes orally before each meal in order to hopefully allow her to eat and also allow her get to the day with as fewer stools as possible. I told her that she could take one 15 mg MS 30 minutes before each meal. I told her that as long as she is only having one stool a day, she might get by with just taking the MS at breakfast and at noon and may be able to skip the evening one. I said if she goes 24 hours without a stool, then she should back off the MS completely. 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 I trust her I think she has a good handle on this and expect she will do well. She is going to see Dr. Lane's office staff on Saturday when she routinely gets fluids and at that time, we will plan on getting another serum analysis including magnesium and potassium and also reevaluate her CBC. FINAL DIAGNOSIS: Rectal bleeding secondary to radiation proctitis and the radiation course is in order to help control the patient's [place] gland carcinoma. In addition, the patient developed Clostridium difficile per GI system during this hospitalization. Of course, she had the anemia and low white blood count on admission all secondary to the chemotherapy for the [place] gland cancer. LADAN GALEANA MD JDN/modl /[id number] d: 06/01/170 t: 06/06/17 1140, DISCHARGE SUMMARY
--- NOTE | ~2017-05-27 | ENPV ---
Vascular Lower Extremities DVT Study Procedure Demographics Patient Name DWAINE FLOWERS Date of Study 05/28/2017 Patient Number [id number] Gender Female Date of 1950 Age 66 Visit Number [id number] Height Accession Number [id number] Weight Room Number G6332 BSA BMI Referring Kervin Moser MD Interpreting Perez Navarro MD Physician Valentino Saavedra MD Physician Physician Ordering Physician Valentino Saavedra MD Crimp Setter Manager System Jasson Chaudhary, RVT Conclusions Summary No evidence of deep vein thrombosis in bilateral lower extremities. Procedure Type of Study: Veins:Lower Extremities DVT Study, Venous Duplex Lower Extremity Bilateral. Indications for Study:Pulmonary embolism. Appropriate Use Criteria:9 Patient Status:Routine. Study Location:Inpatient Portable. Technical Quality:Adequate visualization. Velocities are measured in cm/s ; Diameters are measured in cm Right Lower Extremities DVT Study Measurements Right 2D and Doppler Measurements + + + + +------+------+ + !Location !Visualized!Compressibility!Thrombosis!Signal!Reflux!Reflux ! ! ! ! ! ! ! !(sec) ! + + + + +------+------+ + !GSV Thigh !Yes !Yes !None !Phasic!No ! ! + + + + +------+------+ + !Common !Yes !Yes !None !Phasic!No ! ! !Femoral ! ! ! ! ! ! ! + + + + +------+------+ + !Prox !Yes !Yes !None !Phasic!No ! ! !Femoral ! ! ! ! ! ! ! + + + + +------+------+ + !Mid Femoral!Yes !Yes !None !Phasic!No ! ! + + + + +------+------+ + !Dist !Yes !Yes !None !Phasic!No ! ! !Femoral ! ! ! ! ! ! ! + + + + +------+------+ + !Popliteal !Yes !Yes !None !Phasic!No ! ! + + + + +------+------+ + !Gastroc !Yes !Yes !None ! ! ! ! + + + + +------+------+ + !PTV !Yes !Yes !None ! ! ! ! + + + + +------+------+ + !Peroneal !Yes !Yes !None ! ! ! ! + + + + +------+------+ + Left Lower Extremities DVT Study Measurements Left 2D and Doppler Measurements + + + + +------+------+ + !Location !Visualized!Compressibility!Thrombosis!Signal!Reflux!Reflux ! ! ! ! ! ! ! !(sec) ! + + + + +------+------+ + !GSV Thigh !Yes !Yes !None !Phasic!No ! ! + + + + +------+------+ + !Common !Yes !Yes !None !Phasic!No ! ! !Femoral ! ! ! ! ! ! ! + + + + +------+------+ + !Prox !Yes !Yes !None !Phasic!No ! ! !Femoral ! ! ! ! ! ! ! + + + + +------+------+ + !Mid Femoral!Yes !Yes !None !Phasic!No ! ! + + + + +------+------+ + !Dist !Yes !Yes !None !Phasic!No ! ! !Femoral ! ! ! ! ! ! ! + + + + +------+------+ + !Popliteal !Yes !Yes !None !Phasic!No ! ! + + + + +------+------+ + !Gastroc !Yes !Yes !None ! ! ! ! + + + + +------+------+ + !PTV !Yes !Yes !None ! ! ! ! + + + + +------+------+ + !Peroneal !Yes !Yes !None ! ! ! ! + + + + +------+------+ + Signature dtt: CINDI MASON dtd: 05/28/17 0809 Physician Self [place]
--- NOTE | ~2017-05-27 | CON ---
PATIENT'S NAME: DWAINE FLOWERS [facility] AGE: 66 Y [address] ROOM: [address] [address] LOCATION: GPCU ADMIT DATE: 05/27/2017 Consultation DISCHARGE DATE: FAMILY PHYSICIAN: Dread Galeana MD ATTENDING PHYSICIAN: Dread Galeana DATE OF CONSULTATION: 05/28/2017 REFERRING PHYSICIAN: MABEL KENNEDY MD REFERRING PROVIDER: Dread Galeana MD REASON FOR CONSULTATION: Bright red blood per rectum. HISTORY OF PRESENT ILLNESS: This is a very pleasant, 66-year-old female who was admitted with general malaise and neutropenic fever. The patient is suffering from [place] gland cancer. She was seen in the cancer clinic today and admitted with possible neutropenic fever. We were asked to see in consultation for low hemoglobin as well as platelets and a 2-week complaint of bloody stools. The patient recently underwent flexible sigmoidoscopy on 05/16/[address] Delia Mar. 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 The patient states for 3 days post flexible sigmoidoscopy, the bleeding stopped, though has returned now for approximately 2 weeks. On admission, the patient's hemoglobin was 6.6. She did receive 2 units of blood with a recheck today at 8.2. The patient's platelet count on admission was also low at 72 with a recheck today at 61. The patient denies any abdominal pain associated with the bright red blood per rectum. She denies any nausea, vomiting, chest pain, or chest pressure. Subsequently, on admission, the patient was also found to have a pulmonary embolism, and an IVC filter was placed as well. 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 PAST SURGICAL HISTORY: Status post gastric bypass, flexible sigmoidoscopy completed on 05/16/2017, KAREEN in 1978, cholecystectomy in 1999, LASIK eye surgery, and cystoscopy with retrograde. SOCIAL HISTORY: The patient denies any ongoing toxic habits including alcohol, tobacco, or PATIENT'S NAME: DWAINE FLOWERS [facility] AGE: 66 Y [address] ROOM: [address] [address] [facility]: [facility] ADMIT DATE: 05/27/2017 Consultation DISCHARGE DATE: FAMILY PHYSICIAN: Dread Galeana MD ATTENDING PHYSICIAN: Dread Galeana illicit drug use. FAMILY HISTORY: The patient's father had a myocardial infarction and lung cancer. The patient's mother had emphysema. The patient's brother had lung cancer. The patient's sister had non-Hodgkin lymphoma. CURRENT MEDICATIONS: Please refer to the medication administration record. REVIEW OF SYSTEMS: All-point review of systems was completed, all were negative except for those identified in the History of Present Illness. PHYSICAL EXAMINATION: GENERAL: A very pleasant, 66-year-old female lying in bed who appears to be in no acute distress. VITAL SIGNS: Temperature 97.6, pulse of 83, respirations 20, blood pressure 101/54, and oxygen saturation is 99% on room air. SKIN: Slightly pale, warm, and dry. No jaundice. HEENT: Head is normocephalic and atraumatic. Pupils equal, round, and reactive. Sclerae are clear, nonicteric. NECK: Soft and supple. CARDIOVASCULAR: Regular. Normal S1 and S2. RESPIRATORY: Respirations even and unlabored. Slightly diminished in the bilateral lobes. ABDOMEN: Soft, round, nontender, and nondistended. Bowel sounds are positive x4 quadrants. MUSCULOSKELETAL: No muscle weakness or atrophy. EXTREMITIES: No clubbing or cyanosis. Trace edema noted to bilateral lower extremities. NEUROLOGICAL: Grossly nonfocal. LABORATORY AND DIAGNOSTIC DATA: Laboratory obtained on admission to [facility] did include a white blood cell count of 0.8, hemoglobin of 6.6, hematocrit of 20.7, MCV 90.8, and platelets of 72. Glucose 127, BUN of 6, creatinine 0.6, sodium 136, potassium of 2.8, chloride of 104, and CO2 of 24. Magnesium 1.3. CT completed, did show PE in the left anterior lobar pulmonary artery and extending into the lower lobe second-order branches with a possible upper lobe pulmonary emboli also suspected. The patient is now status post IVC filter placement. ASSESSMENT AND PLAN: Again, this is a very pleasant, 66-year-old female who was admitted with general malaise, anemia, as well as hematochezia. The patient was found to PATIENT'S NAME: DWAINE FLOWERS [facility] AGE: 66 Y [address] ROOM: [address] [place], [place] [address] LOC[facility]: [facility] ADMIT DATE: 05/27/2017 Consultation DISCHARGE DATE: FAMILY PHYSICIAN: Dread Galeana MD ATTENDING PHYSICIAN: Dread Galeana have neutropenic fever when evaluated by Oncology. The patient was admitted. We were asked to see in consultation for the patient's hematochezia. It was discussed in depth with Dr. Mabel Kennedy as well as Dr. Barrera. Due to the patient's neutropenic fever as well as low platelet count, no further intervention is warranted secondary to possible increasing risk of bleeding with APC. This was discussed in depth with Dr. Galeana, as well as we will recommend to transfuse as needed and intervene if the patient becomes medically optimal and in agreement with Oncology. Thank you for this consult. ANETA GONZALEZ APRN FOR MABEL KENNEDY MD MMF/modl /[id number] d: 05/28/17 1420 t: 06/22/17 0933, CONSULTATION REPORT
--- NOTE | ~2017-05-27 | ER ---
PATIENT'S NAME: DWAINE IVEY [facility] AGE: 66 Y [address] ROOM: [place] [address] LOCATION: GPCU ADMIT DATE: 05/27/2017 ER/Outpatient Report DISCHARGE DATE: FAMILY PHYSICIAN: Dread Galeana MD ATTENDING PHYSICIAN: Dread Galeana CHIEF COMPLAINT: General malaise with possible fever of unknown origin. HISTORY OF PRESENT ILLNESS: Ms. Ivey is suffering from [place]'s gland cancer. She was seen at the cancer center today and there was concern for possible neutropenic fever. She was displaying signs and symptoms of fever and hypovolemia, but did not actually have a fever. She is currently receiving chemo for the above cancer. She has been noting bloody stools. She had low hemoglobin and platelets as well today. She was referred here for further evaluation and treatment in this setting. She notes that she feels short of breath particularly with an exertion. Vital signs from clinic are notable for what appears to be orthostatic hypotension in the setting of overall hypovolemia likely secondary to diarrhea and infection. She has received 1 L of fluids prior to arrival, but no other treatment. The onset of this was Saturday. She has a history of rectal bleeding status post cautery to some extent by GI. PAST MEDICAL HISTORY: Documented on the record and reviewed by me. SOCIAL HISTORY: Documented on the record and reviewed by me. MEDICATIONS: Documented on the record and reviewed by me. ALLERGIES: DOCUMENTED ON THE RECORD AND REVIEWED BY ME. REVIEW OF SYSTEMS: All systems reviewed and negative except as noted in the HPI. PHYSICAL EXAMINATION: VITAL SIGNS: Blood pressure 129/60, pulse 90, respiratory rate 22, temperature 100, SpO2 is 100% on room air. GENERAL: Elderly female appearing older than stated age in obvious pain and distress though mild in an upright position on the exam table. NEUROLOGIC: Awake and alert. GCS is 15. No obvious abnormalities. No asymmetry. PATIENT'S NAME: DWAINE IVEY [facility] AGE: 66 Y [address] ROOM: [place] [address] LOCATION: GPCU ADMIT DATE: 05/27/2017 ER/Outpatient Report DISCHARGE DATE: FAMILY PHYSICIAN: Dread Galeana MD ATTENDING PHYSICIAN: Dread Galeana HEENT: Normocephalic, atraumatic. Eyes are PERRL. Oropharynx is clear and dry. NECK: Supple. Trachea is midline. CHEST/HEART: Tachycardic with no murmurs. LUNGS: Grossly clear to auscultation bilateral with no rhonchi, wheezes, or rales. ABDOMEN: Slightly distended and diffusely mildly tender. No focal tenderness. No rebound, guarding or masses. BACK: Normal to inspection on palpation. The bilateral lower extremities are slightly edematous, but no erythema, poorly demarcated. SKIN: Warm, dry, and intact. The back was generally unremarkable. LABORATORY DATA AND X-RAYS: Chest x-ray unremarkable per my review. CBC: White count is 0.8, hemoglobin is 6.6, platelets of 72, differential is absolute neutrophil count of 0.1, INR is 1.1, lactate is 2.8. CK-MB and troponin are below threshold. Free T4 and TSH are within normal limits. D- dimer is 1.87, procalcitonin 0.09. Urinalysis no leukocytes, nitrites, or blood. Micro with 2-5 epithelial cells and moderate bacteria. Fecal occult blood test is positive. Blood type is O negative. No antibodies. Lower extremity duplex ultrasound is pending. Chest CT-PE protocol, not optimally gated, however, Radiology is calling left- sided pulmonary embolism. IMPRESSION: 1. Sepsis like picture in the setting of neutropenia. 2. Anemia likely secondary to blood loss, bone marrow suppression and immunosuppression. 3. Gastrointestinal bleeding. 4. Pulmonary embolism. 5. Active cancer. EMERGENCY DEPARTMENT COURSE: The patient was seen and evaluated as above. Based on her concern from the referring physician, Dr. Madrigal, she will need antibiotics. Cefepime was ordered upon arrival. She had increase in her blood pressures to more normal region. She did have a bloody bowel movement. This was sent for analysis. She was started on D5 half-normal saline for maintenance fluids. With the elevated D-dimer in the setting of shortness of breath and tachycardia, I could not attribute all of this to symptomatic anemia. Chest CT-PE protocol was obtained and positive. This in conjunction with her GI bleeding is somewhat of a treatment conundrum. I did discuss the case with Dr. Galeana to PATIENT'S NAME: DWAINE IVEY [facility] AGE: 66 Y [address] ROOM: [id number] [place] [id number] [facility]: [facility] ADMIT DATE: 05/27/2017 ER/Outpatient Report DISCHARGE DATE: FAMILY PHYSICIAN: Dread Galeana MD ATTENDING PHYSICIAN: Dread Galeana admit the patient. He has requested to discuss with Dr. Madrigal as well. Dr. Madrigal is recommending IVC filter. The patient was sent to the angio suite to receive an IVC filter. She will be admitted to the floor under the care of Dr. Galeana. She was given some tramadol for her pain and discomfort and 2 units of packed red blood cells were ordered for this individual. She remained otherwise stable and will be taken to the floor after the procedure. MD LISSETT ROSARIO/katarzynal /[id number] d: 05/28/17 0733 t: 06/17/17 1654, OUTPATIENT REPORT
--- NOTE | ~2017-05-27 | HP ---
PATIENT'S NAME: FLOR IVEY [facility] AGE: 66 Y [address] ROOM: [id number] [place], [place] [address] [facility] ADMIT DATE: 05/27/2017 History & Physical DISCHARGE DATE: FAMILY PHYSICIAN: Ladan Galeana MD ATTENDING PHYSICIAN: Ladan Galeana DATE OF SERVICE: HISTORY OF PRESENT ILLNESS: Flor Ivey is admitted to the hospital via emergency room via Dr. Madrigal' office via a phone call that her made to me earlier in the morning. Flor is in a second stage going around the chemotherapy and radiation for a [place]'s gland tumor that has been very difficult to deal with and of course very rare. In the past couple of months, she has had some issues with bleeding from postradiation proctitis and her called me this morning and said that she was bleeding again, that she was scheduled to receive fluids at Dr. Lane's office early in the afternoon. So, I recommended they check her CBC there and drain the fluids and we would move on from there. The patient's hemoglobin was less than 7 and her white blood count was, I believe 500, so the patient was sent to the emergency room for evaluation. Dr. Avelar called me and said that he is concerned also about whether or not the patient might be suffering from a pulmonary embolism. So, we evaluated that with a scan and also found that the patient did have evidence of a pulmonary embolism. So, at this time, the patient is being admitted. Charts and records are readily available to serially follow this patient's progress over the last year. MEDICATIONS: At this time, basically the patient is on some tramadol, some stool softeners. She states she takes Nexium at home and has been taking some Pepto-Bismol for some heartburn. The patient has been followed almost weekly by Dr. Lane's group and has recently been seeing Dr. Mar for the rectal bleeding and she says that Dr. Mar recently told her that we will need to cauterize the bleeders as needed, but since she has not been bleeding recently, to wait until she was actively bleeding again, before this was scheduled. PAST MEDICAL HISTORY/REVIEW OF SYSTEMS: The patient had a cancer of the cervix and uterus, I think in the 1970s or 1980s, which diagnosed and adequately treated at that time. PHYSICAL EXAMINATION: GENERAL: Flor is a 66-year-old, I believe, white female living in the [place] area with her in-laws and her , who has been very supportive throughout all this. She has a great family support and strong mormon phase and background that helps her a great deal in this particular case. HEENT: The inspection reveals a normocephalic female with loss of most of her PATIENT'S NAME: FLOR IVEY [facility] AGE: 66 Y [address] ROOM: [address] [address] [facility] ADMIT DATE: 05/27/2017 History & Physical DISCHARGE DATE: FAMILY PHYSICIAN: Ladan Galeana MD ATTENDING PHYSICIAN: Ladan Galeana hair. Face certainly looks pale. Extraocular muscles intact. Pupils are equally round and reactive to light. Combination of tongue appears a bit pale, protrudes in the midline. Eyes: Extraocular muscles are intact. Pupils are equally round and reactive. Carotids were quiet, supple. LUNGS: Chest sounds were actually present throughout her lungs. No rales, rhonchi, or wheezes were noted. ABDOMEN: Examination of the patient's abdomen, there were few bowel sounds present. I could not feel any definite tumor enlargement; however, the patient did have some generalized tenderness over the entire abdomen. PELVIC AND RECTAL: Not performed. EXTREMITIES: Adequate peripheral circulation was noted and were warm and dry. 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 Chemotherapy for [place]'s gland tumor, anemia, and secondary to chemotherapy. Of course, underlying all of this is the [place]'s gland tumor. Currently, the patient has some nausea, heartburn, weakness secondary to the above-mentioned tumor and therapy will be, of course, IV; relief of any pain or discomfort. Treatment for the pulmonary embolism will be rather difficult because of her bleeding history. We will have to discuss this. We will have the GI boys come by, of course Oncology will be involved. I plan on a 2 units of packed red blood cells for transfusion, appropriate fluid therapy, analgesics, and antinausea medicines. LADAN GALEANA MD JBEN/modl /[id number] D: [id number] T: [id number] HISTORY & PHYSICAL
[~2017-05-27 14:44] MED LIST changes: -ASPIR-TRIN325 MG PO; -ASPIRIN325 MG PO; -CORRECTOL5 MG PO; -DELTASONE5 MG PO; -FLAGYL500 MG PO; -LASIX40 MG PO; -MS CONTIN15 MG PO; -OSCAL500 MG PO; -PAIN RELIEVER325 MG PO; -PROTONIX40 MG PO; -SLEEP AID25 M1 PO; -SLOW-MAG (64 MG1 TAB PO; -STOOL SOFTENER100 MG PO; -TYLENOL325 MG PO; -VANCOMYCIN125 MG/2.5 PO
[2017-05-27 15:34] LABS: HEMATOCRIT 20.7 % (33.0-46.0); MCV 90.8 fl (83.0-98.0); MPV 11.6 fl (9.4-12.4); RBC 2.28 M/uL (3.50-5.50); RDW-CV 21.8 % (11.9-14.6)
[2017-05-27 15:35] LABS: HEMOGLOBIN 6.6 g/dL (10.0-15.0); MCH 28.9 pg (27.0-34.0); MCHC 31.9 gm/dL (32.0-36.5); PLATELET COUNT 72 K/uL (150-450); WBC 0.8 K/uL (4.0-11.0)
[2017-05-27 15:39] LABS: INR - (THERAPEUTIC) 1.16 (0.92-1.07); PROTIME 12.2 SECONDS (9.8-11.4)
[2017-05-27 15:45] LABS: BILIRUBIN URINE NEGATIVE (NEGATIVE); BLOOD URINE NEGATIVE /UL (NEGATIVE); COLOR URINE YELLOW (YELLOW); GLUCOSE URINE NEGATIVE (NEGATIVE); KETONE URINE 50 mg/dL (NEGATIVE); LEUKOCYTES URINE NEGATIVE /UL (NEGATIVE); NITRITE URINE NEGATIVE (NEGATIVE); PH URINE 6.5 (4.0-8.0); PROTEIN URINE 15 mg/dL (NEGATIVE); TURBIDITY URINE CLEAR (CLEAR); UROBILINOGEN URINE NORMAL (NORMAL)
[2017-05-27 15:53] LABS: BACTERIA URINE MODERATE (NEGATIVE); HYALINE CAST URINE 0-2 #/LPF (NEGATIVE); MUCUS URINE 2+ (NEGATIVE); RBC URINE NEGATIVE #/HPF (NEGATIVE); WBC URINE NEGATIVE #/HPF (NEGATIVE)
[2017-05-27 16:24] LABS: ABSOLUTE NEUTROPHIL CT (ANC) 0.1 K/uL (1.8-7.8); BANDED NEUTROPHILS % 1 %; LYMPHOCYTE # 0.5 K/uL (0.8-4.0); LYMPHOCYTE % 60 %; MONOCYTE # 0.2 K/uL (0.0-1.0); SEGMENTED NEUTROPHIL # 0.1 K/uL (1.8-7.8); SEGMENTED NEUTROPHIL % 7 %
[2017-05-28 06:10] LABS: ALBUMIN 2.4 gm/dL (3.5-5.0); ALK PHOS 179 IU/L (33-138); ALT 19 IU/L (12-78); AST 29 IU/L (10-40); BLOOD UREA NITROGEN 6 mg/dL (6-24); CHLORIDE 104 mMol/L (96-110); CO2 24 mMol/L (22-32); CREATININE 0.6 mg/dL (0.5-1.1); ESTIMATED GFR (MDRD EQUATION) > 60; SODIUM 136 mMol/L (135-145); TOTAL PROTEIN 5.5 g/dL (6.0-8.4)
[2017-05-28 06:11] LABS: ANION GAP 10.8 (10.0-19.0); CALCIUM 7.3 mg/dL (8.5-10.5); POTASSIUM 2.8 mMol/L (3.7-5.1); TOTAL BILIRUBIN 0.9 mg/dL (0.0-1.5)
[2017-05-28 06:29] LABS: HEMATOCRIT 24.2 % (33.0-46.0); HEMOGLOBIN 8.2 g/dL (10.0-15.0); MCH 29.7 pg (27.0-34.0); MCHC 33.9 gm/dL (32.0-36.5); MCV 87.7 fl (83.0-98.0); MPV 13.2 fl (9.4-12.4); PLATELET COUNT 61 K/uL (150-450); RBC 2.76 M/uL (3.50-5.50)
[2017-05-28 06:32] LABS: WBC 1.5 K/uL (4.0-11.0)
--- NOTE | 2017-05-28 06:42 | NUR ---
Significant Event: Patient alert and oriented x3. HR 90s-100s. SBP 90s-160s. Low grade temp of 99.1 at 0100. Tylenol given with relief. On RA. 2 units PRBC given. Patient tolerated well. Lasix and Protonix given. 1300ml uop + incontinent VD x7. BM x3. No toby blood. Rt. groin site soft, C/D/I. Patient off bedrest. Up with 1 assist to bedside commode. Open sore to coccyx and shearing to abdominal/groin folds. Complained of pain to bottom and abdominal folds. Ultram given x1 with relief. No complaints of SOB since midnight. Patient calm and cooperative with all cares. Follow up: GI, WOC, and Oncology consults today.
--- NOTE | 2017-05-28 07:21 | NUR ---
Patient arrived to floor at 1845 per cart and Insurance Ver[employer] Rep RNs x2. Patient was sent to ER by Dr. Madrigal upon being seen in her office. Patient had been complaining of a fever for the last 24 hours, weakness and SOB for the last 2 days, and bloody stools for the past week. Patient recieved 2g Cefepime in ER. A CT was done which showed a PE. Cardiac enzymes were negative. WBC 0.8. Hgb 6.6. Potassium 3.3. ProCal 0.09. D-Dimer 1.87. Patient was taken to Non Invasive Radiology for IVC Filter placement. Patient has history of [place] Gland Cancer. Last chemo treatment was last week. Patient is a retired psych nurse. Recently moved to [place] from [place]. Dr. Galeana admitting. GI, Oncology, and WOC consults in the morning.
[2017-05-28 07:23] LABS: ABSOLUTE NEUTROPHIL CT (ANC) 0.2 K/uL (1.8-7.8); BANDED NEUTROPHILS % 3 %; LYMPHOCYTE # 0.7 K/uL (0.8-4.0); LYMPHOCYTE % 45 %; MONOCYTE # 0.6 K/uL (0.0-1.0); SEGMENTED NEUTROPHIL # 0.1 K/uL (1.8-7.8); SEGMENTED NEUTROPHIL % 7 %
--- NOTE | 2017-05-28 13:55 | NUR ---
A - PT SCREENED D/T MST PT REPORTED 43# WT LOSS IN 1 YEAR, 7# WT LOSS IN 1 MONTH. POOR APPETITE ABOUT 6 MONTHS AGO. DEFER NFPE, NEUTROPENIC PRECAUTION. OPEN SORE TO COCCYX AND ABD/GROIN FOLDS PER SHIFT REPORT. GI CONSULT FOR GI BLEED. HT: 170.18 CM, WT: 200#, BMI: 31.4, IBW: 61 KG, %IBW: 149% LABS: K+ 2.8, GLU 124, ALB 2.4, MG 1.3 MEDS: UNISOM, ZOFRAN DIET: CLEAR LIQUID. 75-100% X1 MEAL NOTED. PT REPORTED 'LACTOSE INTOLERANCE'. DOES NOT DRINK MILK AND EAT CHEESE BUT OKAY W/ YOGURT AND PUDDING. NO PB, GASSY FOOD/VEGETABLES AND CHOCOLATE. DID TRY SOME ORGANIC KIND OF ORAL SUPPLEMENT AT HOME. TRIED ENSURE CLEAR LAST TIME, LIKES IT. LEFT SOME ORAL SUPPLEMENT COUPONS WITH PT. EST NEEDS: 4882-5717 KCAL (25-30 KCAL/KG IBW), 61-73 GRAMS PROTEIN (1-1.2 GRAMS/KG IBW), FLUID NEEDS: 1ML/KCAL D - INADEQUATE ORAL INTAKE RELATED TO DECREASED APPETITE EVIDENCED BY 5% WEIGHT LOSS IN 2 WEEKS. I - PT AGREED TO TRY ENSURE CLEAR BID AND HIGH PROTEIN SNACK BID (ONCE DIET ADVANCED). M/E - GOAL: ADVANCE DIET TOLERATED IN 3-5 DAYS AND ABLE TO TOLERATE >50% OF MEALS AND AT LEAST ONE ORAL SUPPLEMENT/SNACK PER DAY.
--- NOTE | 2017-05-28 14:56 | NUR ---
Introduced self and role of acare management to patient and her . They live in [place] with his parents. She states that she is able to do most of her own ADL's. Her family does assist if she needs help. They are planning on her returning home on discharge. She denies any needs at this time. Will continue to follow.
--- NOTE | 2017-05-28 16:35 | NUR ---
SIGNIFICANT EVENT: Patient A/O x3. Potassium level was 2.8 this AM, gave KCL IV this shift. No c/o shortbess of breath. Has an IVC to R) groin. Incontinent at times-was continent this shift with a small BM. Test next stool for C.Diff. Has tramadol PRN for pain-no c/o pain this shift. Fentanyl patch placed yesterday-to stay on for 72 hours. VSS. Runs tachy at times. HR's this shift have been 83-96. SBP 101-108. On RA. L) chest port, single lumen. Afebrile. Replacing Magnesium PO. Chemo and neutropenic precautions. GI saw patient-to hold off on colonoscopy due to platelet levels. FOLLOW UP: Continue with plan of care.
[2017-05-29 04:16] LABS: ALBUMIN 2.1 gm/dL (3.5-5.0); ALK PHOS 175 IU/L (33-138); ALT 17 IU/L (12-78); ANION GAP 9.9 (10.0-19.0); AST 27 IU/L (10-40); BLOOD UREA NITROGEN 4 mg/dL (6-24); CHLORIDE 112 mMol/L (96-110); CO2 22 mMol/L (22-32); CREATININE 0.4 mg/dL (0.5-1.1); ESTIMATED GFR (MDRD EQUATION) > 60; POTASSIUM 3.9 mMol/L (3.7-5.1); SODIUM 140 mMol/L (135-145)
[2017-05-29 04:17] LABS: CALCIUM 7.3 mg/dL (8.5-10.5); TOTAL BILIRUBIN 0.5 mg/dL (0.0-1.5); TOTAL PROTEIN 4.9 g/dL (6.0-8.4)
[2017-05-29 04:46] LABS: MCV 88.4 fl (83.0-98.0); MPV 12.4 fl (9.4-12.4); RBC 2.49 M/uL (3.50-5.50); RDW-CV 19.8 % (11.9-14.6); WBC 4.4 K/uL (4.0-11.0)
[2017-05-29 04:48] LABS: HEMOGLOBIN 7.4 g/dL (10.0-15.0); MCH 29.7 pg (27.0-34.0); MCHC 33.6 gm/dL (32.0-36.5); PLATELET COUNT 47 K/uL (150-450)
--- NOTE | 2017-05-29 04:48 | NUR ---
Significant events: Pt A/Ox3. VSS, SBP 90-110's. On RA. No complaints of pain. Up SBA, family assists at times to commode. L) chest port in place, NS with 30meq KCL at 100. IV antibiotics continue. AM labs pending. Neutropenic and chemo precautions continue. Slept well, cooperative [facility] cares.
[2017-05-29 05:40] LABS: ABSOLUTE NEUTROPHIL CT (ANC) 2.3 K/uL (1.8-7.8); BANDED NEUTROPHIL # 0.8 K/uL (0.0-0.1); BANDED NEUTROPHILS % 19 %; LYMPHOCYTE # 0.6 K/uL (0.8-4.0); LYMPHOCYTE % 13 %; MONOCYTE # 1.1 K/uL (0.0-1.0); SEGMENTED NEUTROPHIL # 1.5 K/uL (1.8-7.8); SEGMENTED NEUTROPHIL % 33 %
--- NOTE | 2017-05-29 19:03 | NUR ---
Significant Event: Alert and oriented X 3. Room air. SBP 80's and 110's. Loose stools. C-dif positive. Neutropenic precautions. No complaints of pain. NS with 30 meq KCL at 100 ml/hr. Blood infusing, 2 units total. Oral Vanco. Up with SBA to commode. Peripheral IV to right anterior forearm, flushes well with good blood return. Left chest port, flushes well with good blood return. Pleasant and cooperative with cares. Follow up:
[2017-05-29 20:40] LABS: HEMATOCRIT 26.2 % (33.0-46.0); HEMOGLOBIN 9.1 g/dL (10.0-15.0)
[2017-05-30 03:48] LABS: ALBUMIN 2.1 gm/dL (3.5-5.0); ALK PHOS 196 IU/L (33-138); ALT 18 IU/L (12-78); AST 33 IU/L (10-40); BLOOD UREA NITROGEN 3 mg/dL (6-24); CHLORIDE 112 mMol/L (96-110); CO2 22 mMol/L (22-32); CREATININE 0.4 mg/dL (0.5-1.1); ESTIMATED GFR (MDRD EQUATION) > 60; SODIUM 140 mMol/L (135-145)
[2017-05-30 03:53] LABS: CALCIUM 7.4 mg/dL (8.5-10.5); TOTAL BILIRUBIN 1.4 mg/dL (0.0-1.5)
[2017-05-30 03:55] LABS: HEMATOCRIT 26.7 % (33.0-46.0); MCH 29.4 pg (27.0-34.0); MCHC 33.7 gm/dL (32.0-36.5); MCV 87.3 fl (83.0-98.0); RBC 3.06 M/uL (3.50-5.50); RDW-CV 19.1 % (11.9-14.6); WBC 14.2 K/uL (4.0-11.0)
[2017-05-30 03:57] LABS: PLATELET COUNT 52 K/uL (150-450)
[2017-05-30 04:00] LABS: INR - (THERAPEUTIC) 1.14 (0.92-1.07)
--- NOTE | 2017-05-30 04:59 | NUR ---
A/O. HR 80-90s. SBP 100-120s. ROOM AIR. AFEBRILE. NEUTROPENIC AND CONTACT ISOLATION PRECAUTIONS. BLOOD FINISHED THIS SHIFT HGB THIS AM 9.0. 1A TO COMMODE. 3 SMALL BLOODY BM. 30MEQ KCL IV AT 100ML/HR CONTINOUS. ULTRAMx1 FOR ABD PAIN. L) PORT WITH GOOD BLOOD RETURN.
[2017-05-30 05:37] LABS: ABSOLUTE NEUTROPHIL CT (ANC) 10.4 K/uL (1.8-7.8); BANDED NEUTROPHILS % 14 %; LYMPHOCYTE # 1.1 K/uL (0.8-4.0); LYMPHOCYTE % 8 %; MONOCYTE # 2.1 K/uL (0.0-1.0); SEGMENTED NEUTROPHIL # 8.4 K/uL (1.8-7.8); SEGMENTED NEUTROPHIL % 59 %
--- NOTE | 2017-05-30 14:21 | NUR ---
A - EARLY FOLLOW-UP C-DIFF POSITIVE. ON CONTACT/NEUTROPENIC PRECAUTION NOW. NO COLONOSCOPY DONE D/T LOW PLATELETS. LABS: BUN 3, CREA 0.4, ALB 2.1, MG 1.3, PRE-ALB 7. NEW MEDS: VANCO. PT IS ON ZOFRAN. DIET: REGULAR. WAS ON FL X2 DAYS. PT IS ALSO GETTING ENSURE CLEAR BID AND HIGH PROTEIN SNACK BID. 'LACTOSE INTOLERANCE', NO MILK TO DRINK AND NO CHEESE BUT OKAY W/ YOGURT/PUDDING/COTTAGE CHEESE. HAS THIS SCHEDULED BUT KITCHEN AFRAID TO SEND D/T INTOLERANCE. CHECKED W/ PT THIS AFTERNOON, PT OKAY'ED IT. HAD 100% OF LUNCH TODAY. PT REPORTED BETTER APPETITE BUT TAKING FOOD SLOW. INTAKE 20% FOR THE PAST 7 MEALS. EST NEEDS: [id number] KCAL, 61-73 GRAMS PROTEIN, FLUID NEEDS: 1ML/KCAL D - INADEQUATE ORAL INTAKE AT TIMES RELATED TO ALTERATION IN APPETITE EVIDENCED BY PO 20% X7 MEALS. I - PT AGREED TO HIGH PROTEIN SNACK QD AND ENSURE CLEAR BID. M/E - GOAL: PT WILL BE ABLE TO TOLERATE >50% OF MEALS AND AT LEAST ONE ORAL SUPPLEMENT PER DAY IN 4-6 DAYS.
--- NOTE | 2017-05-30 19:49 | NUR ---
Significant Event: A/O X3, @ bedside. 1 assist. Neutropentic/C.Diff precautions. tolerates diet better today after IV Morphine. bloody rectal discharge. voids per BSC, sensicare to escoriated buttocks/perineal area. IVF L)chest portacath. Follow up: plan possible discharge home tomorrow
[2017-05-31 04:48] LABS: ALBUMIN 2.1 gm/dL (3.5-5.0); ALK PHOS 222 IU/L (33-138); ALT 18 IU/L (12-78); ANION GAP 9.3 (10.0-19.0); AST 35 IU/L (10-40); BLOOD UREA NITROGEN 2 mg/dL (6-24); CALCIUM 7.5 mg/dL (8.5-10.5); CHLORIDE 112 mMol/L (96-110); CO2 22 mMol/L (22-32); CREATININE 0.4 mg/dL (0.5-1.1); ESTIMATED GFR (MDRD EQUATION) > 60; POTASSIUM 4.3 mMol/L (3.7-5.1); SODIUM 139 mMol/L (135-145); TOTAL PROTEIN 5.1 g/dL (6.0-8.4)
[2017-05-31 04:49] LABS: TOTAL BILIRUBIN 0.6 mg/dL (0.0-1.5)
[2017-05-31 05:08] LABS: MCH 29.8 pg (27.0-34.0); MCHC 33.3 gm/dL (32.0-36.5); MCV 89.4 fl (83.0-98.0); MPV 13.2 fl (9.4-12.4); RBC 3.02 M/uL (3.50-5.50); RDW-CV 19.5 % (11.9-14.6)
[2017-05-31 05:10] LABS: PLATELET COUNT 68 K/uL (150-450); WBC 18.3 K/uL (4.0-11.0)
--- NOTE | 2017-05-31 05:10 | NUR ---
Pt A&Ox4. VSS on RA throughout shift. Continues to have loose, bloody stools this shift x2. Kathryn area remains excoriated, sensicare applied with toileting and PRN. Fentanyl patch intact to left shoulder, PRN tramadol x1 for breakthrough pain, with good relief. Voiding and taking PO without issue. Up with SBA to BSC. Continues with chemo/neutropenic/contact c-diff precautions. Pleasant and cooperative with cares. Possible d/c to home today.
[2017-05-31 06:30] LABS: ABSOLUTE NEUTROPHIL CT (ANC) 13.9 K/uL (1.8-7.8); BANDED NEUTROPHIL # 4.6 K/uL (0.0-0.1); BANDED NEUTROPHILS % 25 %; LYMPHOCYTE # 1.5 K/uL (0.8-4.0); LYMPHOCYTE % 8 %; MONOCYTE # 1.8 K/uL (0.0-1.0); SEGMENTED NEUTROPHIL # 9.3 K/uL (1.8-7.8); SEGMENTED NEUTROPHIL % 51 %
--- NOTE | 2017-05-31 14:23 | NUR ---
D:Patient discharged to return home. Has perosnal belongings. Pt and verbelize understanding of discharge instructions. Discharged per wheelchair, released to at 1320. Will return home.
== END 2017-05-31 13:20 | disposition disaster alternative care site (69) | DRG 166 ==
LOC: GMED 14:44 → GPCU 18:15
PROVIDERS: Emergency Medicine; ADMIT Family Medicine
PROC: B549ZZA Ultrasonography of Inferior Vena Cava, Guidance (ICD-10-PCS; principal; 2017-05-27)
PROC: 30233N1 Transfusion of Nonautologous Red Blood Cells into Peripheral Vein, Percutaneous Approach (ICD-10-PCS; principal; 2017-05-27)
PROC: 06H03DZ Insertion of Intraluminal Device into Inferior Vena Cava, Percutaneous Approach (ICD-10-PCS; principal; 2017-05-27)
DX: I26.99 Other pulmonary embolism without acute cor pulmonale (principal); D61.810 Antineoplastic chemotherapy induced pancytopenia; A04.7 Enterocolitis due to Clostridium difficile; C00-D49 Neoplasms; K62.5 Hemorrhage of anus and rectum; E86.1 Hypovolemia; F41.9 Anxiety disorder, unspecified; Z92.3 Personal history of irradiation; Z85.41 Personal history of malignant neoplasm of cervix uteri; Z85.42 Personal history of malignant neoplasm of other parts of uterus; K62.7 Radiation proctitis; I95.1 Orthostatic hypotension; Z23 Encounter for immunization
CPT/HCPCS: C1880; C9113; G0009; J0692; J1642; J1644; J1940; J2250; J2270; J3010; J3480; J7030; J7040; J7050; P9040

== ENCOUNTER → 2017-06-25 | Outpatient (CLI) | payer MEDICARE, OTHER ==
[~2017-06-25] MED LIST changes: +ASPIR-TRIN325 MG PO; +ASPIRIN325 MG PO; +CORRECTOL5 MG PO; +DELTASONE5 MG PO; +FLAGYL500 MG PO; +LASIX40 MG PO; +MS CONTIN15 MG PO; +OSCAL500 MG PO; +PAIN RELIEVER325 MG PO; +PROTONIX40 MG PO; +SLEEP AID25 M1 PO; +SLOW-MAG (64 MG1 TAB PO; +STOOL SOFTENER100 MG PO; +TYLENOL325 MG PO; +VANCOMYCIN125 MG/2.5 PO
== END | disposition disaster alternative care site (69) ==
LOC: GKIC 11:20
DX: C00-D49 Neoplasms (principal); C79.51 Secondary malignant neoplasm of bone; N36.8 Other specified disorders of urethra; R39.15 Urgency of urination; D70.1 Agranulocytosis secondary to cancer chemotherapy; K92.1 Melena; D64.81 Anemia due to antineoplastic chemotherapy; I26.99 Other pulmonary embolism without acute cor pulmonale; R11.2 Nausea with vomiting, unspecified
CPT/HCPCS: A9552

== ENCOUNTER 2017-07-26 13:05 | Inpatient (IN) | payer MEDICARE, OTHER ==
[~2017-07-26] VITALS: Ht 170.2 cm; Wt 103.8 kg
--- NOTE | ~2017-07-26 | HP ---
PATIENT'S NAME: DWAINE IVEY [facility] AGE: 66 Y [address] ROOM: [address] [address] LOCATION: 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 She has had a couple of regimens of chemotherapy and radiation with little success, has slowed the tumor down, but certainly not stopped the growth and at this time continues to progress. It is a very rare form of cancer and there are really no protocols that have guided us in a direction as to how best to treat this. She sees Dr. Lane of course frequently. Currently, he is trying Lupron, which of course, has a good track record with prostate cancer and of course the [place]'s gland theoretically originated from the same type of tissue. The patient currently receives fluids 3 days a week at Dr. Lane's office and of course, we support her with antiemetics, fentanyl pain patches, Tylenol, tramadol, and the fluid that she gets 3 times a week at Dr. Lane's office. Dwaine at this time enters the emergency room in the hospital after her called me this morning and said they had an emergency and the fact that Dwaine was once again having rectal bleeding. 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 At this time, she enters the hospital for fluids and appropriate evaluation and treatment. PAST MEDICAL HISTORY: Dwaine did have I believe cancer of the uterus approximately 35-40 years ago when she was in her late 20s or early 30s and evidently had been successfully treated with no recurrence. 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 It has been very sad situation and the fact that within 2 or 3 weeks of her moving to her new home in [place], we made the diagnosis of the cancer. 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 CURRENT MEDICATIONS: Per the chart, may remain unchanged from her last hospitalization I believe other than the Lupron that Dr. Lane is currently giving her and of course, she just had her first injection. She also had some ketoconazole evidently as an adjuvant to the Lupron therapy for the past 7-10 days. She said following the injection and then the ketoconazole she has begun to have a great deal of PATIENT'S NAME: DWAINE IVEY [facility] AGE: 66 Y [address] ROOM: [place] [address] LOCATION: [facility] [place] ADMIT DATE: 07/26/2017 History & Physical DISCHARGE DATE: FAMILY PHYSICIAN: Ladan Galeana MD ATTENDING PHYSICIAN: Ladan Galeana swelling in her ankles and also swelling in her abdomen and pain and tenderness in her mid upper abdomen. She says her appetite is rather poor and she has a great deal of discomfort, especially when she moves. She has the swelling in her abdomen and her feet, this within the last 10 days to 2 weeks. PHYSICAL EXAMINATION: GENERAL: Dwaine is a 66-year-old white female, former nurse, admitted this time with rectal bleeding, also severe edema of her extremities and abdomen. HEENT: Head inspection reveals a normocephalic female with very little hair. She is very pale. Features are little sunken at this time, more so than they have been in the past. She has that appearance of being on the little weak. Her voice is still reasonable, but not as strong as it has in the past. Eyes: Extraocular muscles are intact. Eyes are sunken. Pupils are equal, round, reactive to light and accommodation. Tongue protrudes in the midline, it is also quite pale. NECK: Carotids are equally palpable. No bruits auscultated. HEART: Heart sounds are present, irregularly regular. No murmurs. LUNGS: Clear to auscultation. BREASTS: Not examined. ABDOMEN: Examination of the patient's abdomen certainly does appear to be a significant amount of swelling and fluid and edema and there seemed to be some generalized fullness in the mid to upper part of her abdomen, giving one a feeling of possible solid tumor mass in place and somewhat tender in this area too. Bowel sounds were present. PELVIC AND RECTAL: Not performed. EXTREMITIES: On examination of patient's extremities, upper extremities were felt to be normal, warm, and dry with not a lot of edema, however, lower extremities from the mid thighs going down showed signs of pitting edema and quite a bit of swelling considering the fact that the patient spends almost all of her time in bed. She did not have tenderness to her feet though. 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 As always, the patient is a little dry and there is some nausea. Prior cancer of the uterus. PLAN: Of course is fluids. Also involve both the Oncology and GI Team. Talked to Dr. Ashley, and he will examine the patient. I assume Dr. Barrera will be up to visit with the patient for the Oncology Team. PATIENT'S NAME: DWAINE IVEY [facility] AGE: 66 Y [address] ROOM: [place] [address] LOCATION: [facility] [place] ADMIT DATE: 07/26/2017 History & Physical DISCHARGE DATE: FAMILY PHYSICIAN: Ladan Galeana MD ATTENDING PHYSICIAN: Ladan Galeana LADAN GALEANA MD JDN/modl /[id number] D: [id number] T: [id number] HISTORY & PHYSICAL
--- NOTE | ~2017-07-26 | CON ---
PATIENT'S NAME: FLOR IVEY [facility] AGE: 66 Y [address] ROOM: [address] [address] [place]: [facility] [place] DATE: 07/26/2017 Consultation DISCHARGE DATE: FAMILY PHYSICIAN: Dread Galeana MD ATTENDING PHYSICIAN: Dread Galeana REFERRING PHYSICIAN: Evelin Ryan MD Consult to Dr. Dread Galeana. REASON FOR CONSULTATION: Flor Ivey is a 66-year-old woman with hematochezia, abdominal swelling, and progressive lower extremity edema with a history of metastatic [place]'s gland tumor. HISTORY OF PRESENT ILLNESS: The history of the present illness through 07/12/2017 is well documented on the patient's [facility] note, which is appended to the chart and that will not be recounted. The patient's past medical history is also enumerated in that record. Since that time, the patient did well until 07/24/2017 when she presented with increasing lower extremity edema, increasing abdominal distention, dyspnea, and orthostatic dizziness. Dr. Lane weighed the pros and cons of hospice with the patient and she declined. He recommended aspirin as an antiplatelet drug to treat her edema. He recommended continuing ketoconazole until the supply was exhausted. He made the point she was on day 7 of her first cycle of leuprolide acetate. The patient took her aspirin over the last 2 days but has stopped it with her hematochezia. She got fluids on 07/24, 1 L IV which helped. At midnight on 07/26/2017, the patient developed increased hematochezia and saturated her pants. She called Dr. Galeana around noon, who directed her to the emergency room where she was evaluated, treated and admitted to the hospital. The patient has no vaginal bleeding or hematuria but does have hematochezia. She has progressive edema in her feet, increased edema in her calf, abdominal pain, and distention. She has early satiety and even has vomited. She has eaten less. She only takes broth at this point. She has had no heartburn. She has taken Pepto-Bismol for her distention. She is constipated, but only mildly, and takes no laxatives. Indeed the last few days, she has developed some loose bowel movements when she has had a bowel movement. Her pain is reasonably well controlled on fentanyl 25 mcg patch, tramadol 25 q.i.d., and the aspirin. She is anorexic, and her weight was falling until she started retaining fluid. She has needed standby assist for 1 to 2 weeks. She has been taking dexamethasone in association with her ketoconazole. She is always cold and has some orthostatic dizziness. The patient reminds us that she has an inferior vena cava filter. However, she thinks her edema started to develop after she took the leuprolide acetate. PATIENT'S NAME: FLOR IVEY [facility] AGE: 66 Y [address] 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 A hospice meeting was scheduled today. The patient was admitted to the hospital, and Dr. Galeana has consulted Dr. Ashley, who apparently plans to perform a colonoscopy and perform cauterization if possible. The patient's INR today is 1.24, the PTT is 27 seconds. The white count 3600, hemoglobin 9.6 g/dL, the MCV 87, the platelets 198,000. The patient has 79 segs and 2 bands. The chemistry reveals multiple abnormalities. Potassium is 3.4 millimoles per L. The albumin is 1.9 g/dL. The alkaline phosphatase is elevated at 264 International Units/L and the AST is elevated at 61 International Units/L. MEDICATIONS: Upon admission: 1. ASA 325 mg p.o. daily. 2. Transdermal fentanyl 25 mcg every 72 hours. 3. Ondansetron 4 mg every 4 hours p.r.n. 4. Prednisone 5 mg p.o. b.i.d. 5. Tramadol 50 mg p.o. every 6 hours p.r.n. ALLERGIES: 1. ADHESIVE TAPE LEADS TO BLISTERS. 2. LACTOSE. 3. LATEX LEADS TO BLISTERS. 4. LEVOFLOXACIN LEADS TO RASH. 5. PENICILLIN. REVIEW OF SYMPTOMS: Negative other than those noted in the history of the present illness. PHYSICAL EXAMINATION: VITAL SIGNS: Pulse 96 and regular, blood pressure not currently listed on the assessment, the blood pressure is not recorded either, respiratory rate 18, temperature 97.8, height 67 inches, weight 102.1 kg (225 pounds), GENERAL: A well-developed, 66-year-old lady with some anasarca. HEENT: Unremarkable. LYMPH NODES: None palpable. NECK: Without JVD or carotid bruits. CHEST: Clear anteriorly. BREASTS: Not examined. CV: Regular rhythm. No murmurs, bruits, or adventitious sounds. ABDOMEN: The abdomen is distended. There may be a fluid wave. GENITALIA AND RECTAL: Not examined. PATIENT'S NAME: FLOR IVEY [facility] AGE: 66 Y [address] ROOM: [place] [address] LOCATION: [facility] [place] ADMIT DATE: 07/26/2017 Consultation DISCHARGE DATE: FAMILY PHYSICIAN: Dread Galeana MD ATTENDING PHYSICIAN: Dread Galeana EXTREMITIES: Reveal pitting edema to the hips. The patient has compression devices on the lower extremities. IMPRESSION: 1. Adenocarcinoma of [place]'s gland, presumably progression. 2. Hematochezia probably due to radiation proctitis. Local invasion of tumor needs to be considered. 3. Fluid retention due to corticosteroids due to hypoalbuminemia and possibly due to the saline hydration she has received. She may have malignant ascites, which could be amenable to a paracentesis. PLAN: 1. Diagnostic: Schedule an ultrasound of the abdomen and legs. 2. Treatment: If the patient has ascites, a paracentesis is a thought. 3. Patient education: Told we will be curious to see what Dr. Ashley finds and can do. Discussed the rationale for the ultrasounds. EVELIN RYAN MD GKB/modl /[id number] CC: MD Callie Avalos MD d: 07/27/17 0045 t: 08/01/17 1300, CONSULTATION REPORT
--- NOTE | ~2017-07-26 | CON ---
PATIENT'S NAME: DWAINE FLOWERS [facility] AGE: 66 Y [address] ROOM: [place] [address] LOCATION: [facility] [place] ADMIT DATE: 07/26/2017 Consultation DISCHARGE DATE: FAMILY PHYSICIAN: Dread Galeana MD ATTENDING PHYSICIAN: Dread Galeana REFERRING PHYSICIAN: Mk Barrera MD REASON FOR CONSULTATION: Rectal bleeding. HISTORY OF PRESENT ILLNESS: This is a very pleasant, but unfortunate, 66-year-old female with a history of metastatic adenocarcinoma of the [place] gland. The patient has seen several oncologists in this respect, and unfortunately has metastatic adenocarcinoma and has undergone chemotherapy and radiation therapy. We have been involved in her care in view of history of intermittent rectal bleeding with findings of radiation proctitis which was treated with the APC coagulation in early May followed by repeat examination, but she was not prepped, and therefore, no further treatment was carried out, and was basically lost to follow up until lately when her primary care physician, Dr. Galeana called me, stating that her is wanting to get her in, in view of increasing rectal bleeding. Her CBC was checked and was found to be stable, slightly low hemoglobin, but platelets were improved. The patient is a very poor historian and is unable to tell us how frequently, she has been having this bleeding episodes. PAST MEDICAL HISTORY: As noted for metastatic adenocarcinoma stage IV and being followed up as per oncologist. She is also status post cholecystectomy, gastric bypass, and total abdominal hysterectomy. MEDICATIONS: As noted in MAR. ALLERGIES: STATED TO PENICILLIN AND LATEX ALLERGY. SOCIAL HISTORY: She lives in [place], [place]. Denies smoking or alcohol use. REVIEW OF SYSTEMS: Negative except as noted in the HPI. PHYSICAL EXAMINATION: GENERAL: An elderly, frail looking female in no distress. VITAL SIGNS: Afebrile. Vital signs are stable. HEENT: Nonicteric sclerae. Pupils round and reactive. PATIENT'S NAME: DWAINE FLOWERS [facility] AGE: 66 Y [address] ROOM: [place] [address] LOCATION: [facility] [place] ADMIT DATE: 07/26/2017 Consultation DISCHARGE DATE: FAMILY PHYSICIAN: Dread Galeana MD ATTENDING PHYSICIAN: Dread Galeana NECK: Supple without palpable nodes. CHEST: Clear to auscultation. HEART: S1 and S2 normal. ABDOMEN: Obese and firm without palpable masses or tenderness. LABORATORY DATA: As noted above. ASSESSMENT AND PLAN: This is a 66-year-old female with metastatic adenocarcinoma of [place] gland and previous adjuvant chemotherapy and radiation therapy with findings of radiation proctitis and previous treatment for APC coagulation. This was discussed with the patient and she is agreeable to repeat examination after colon prep in regard to further treatment or suspected radiation proctitis. Further recommendations pending this evaluation. Thank you for this consultation. MABEL KENNEDY MD AM/haroldo /[id number] d: 07/27/17 1237 t: 08/12/17 1136, CONSULTATION REPORT
--- NOTE | ~2017-07-26 | ER ---
PATIENT'S NAME: DWAINE [facility] AGE: 66 Y [address] ROOM: [address] [address] [place] [facility] [place] DATE: 07/26/2017 ER/Outpatient Report DISCHARGE DATE: FAMILY PHYSICIAN: Dread Galeana MD ATTENDING PHYSICIAN: Dread Galeana Time of Arrival: 1313 hours. Time of Evaluation: 1313 hours. CHIEF COMPLAINT: Rectal bleeding. HISTORY OF PRESENT ILLNESS: The patient states that she has been having problems with rectal bleeding for the past week. However, it is seemed worse in the last 24 hours. She states that she saturated a pad this morning. She has been having problems off and on with shortness of breath. She does have a cough of clear phlegm. She has had some generalized nausea, abdominal pain, chills, back pain, and had diarrhea x1. She has a history of a [place]'s gland cancer and has been hospitalized in the past for rectal bleeding. She has proctitis as result of radiation. CURRENT MEDICATIONS: On her chart and reviewed by me. ALLERGIES: ON HER CHART AND REVIEWED BY ME. 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 PAST SURGERIES: Cholecystectomy, gastric bypass, LASIK eye surgery, and she had a flex sigmoidoscopy done on 05/16/2017. SOCIAL HISTORY: She denies use of tobacco, drugs, or alcohol. She presents to the ER accompanied by her and daughter. Dr. Galeana in [place] is her primary provider. REVIEW OF SYSTEMS: Negative other than those mentioned in the HPI. PHYSICAL EXAMINATION: VITAL SIGNS: She weighed 102.3 kg. Blood pressure is 118/73, pulse of 101, PATIENT'S NAME: [facility]INE [facility] AGE: 66 Y [address] ROOM: [address] [address] [place] [facility] [place] DATE: 07/26/2017 ER/Outpatient Report DISCHARGE DATE: FAMILY PHYSICIAN: Dread Galeana MD ATTENDING PHYSICIAN: Dread Galeana respirations 20, temperature of 97.4 tympanic, and O2 saturation is 95% on room air. GENERAL: She is awake, alert, and oriented x4. SKIN: [place], warm, and dry. RESPIRATIONS: Even and nonlabored. Lung sounds are clear throughout. HEART: Regular rate and rhythm. ABDOMEN: Soft and nondistended. Bowel sounds are present. She does have some pedal edema. RECTAL EXAM: She does have dried blood of the rectal area. It is painful when digital exam is completed. She has a port which was accessed and lab was drawn. LABORATORY DATA: CBC shows a white count of 3.6, hemoglobin is 9.6 with hematocrit of 30, her platelet count is 198. Her ANC is 2.9. Her pro-time is 13 with an INR of 1.24. Sodium is 139, potassium is 3.4, chloride 109, BUN is 8 with creatinine 0.5. Lactate was 1.7. Procalcitonin was 0.07. Heme test of the stool was positive. Her blood type is O negative. ER COURSE: Her vital signs remained stable. She rested comfortably on the cart. I did call and talk with Dr. Galeana regarding lab results and assessment. The patient was given opportunity to stay or go home per Dr. Galeana's recommendations. She is going to stay and get IV fluids. IMPRESSION: 1. Rectal bleeding. 2. [place]'s gland cancer with metastasis. PLAN: The patient will be placed in observation for care of Dr. Galeana, she and her family agree with plan. DARIN CR APRN FOR DO JENELLE WHITE/haroldo /[id number] d: 07/26/17 2317 t: 08/02/17 0700, OUTPATIENT REPORT
--- NOTE | ~2017-07-26 | ENPV ---
Vascular Lower Extremities DVT Study Procedure Demographics Patient Name DWAINE FLOWERS Date of Study 07/27/2017 Patient Number [id number] Gender Female Date of 1950 Age 66 Visit Number [id number] Height Accession Number [id number] Weight Room Number G3205 BSA BMI Referring Bruce Jimenez MD Interpreting Perez Navarro MD Physician Kervin Moser MD Physician Physician Ordering Physician Bruce Jimenez Artist Mannequin Coloring Copy Coordinator Olvin Sutton RVT Conclusions Summary Evidence of DVT in right popliteal vein and PTV and peroneal veins. No evidence of DVT proximal to popliteal vein in the right leg. No evidence of DVT in the left lower extremity. Procedure Type of Study: Veins:Lower Extremities DVT Study, Venous Duplex Lower Extremity Bilateral. Indications for Study:Previous DVT. Appropriate Use Criteria:9 Patient Status:Routine. Study Location:Inpatient Portable. Technical Quality:Adequate visualization. Velocities are measured in cm/s ; Diameters are measured in cm Right Lower Extremities DVT Study Measurements Right 2D and Doppler Measurements + + + + +------+------+ + !Location !Visualized!Compressibility!Thrombosis!Signal!Reflux!Reflux ! ! ! ! ! ! ! !(sec) ! + + + + +------+------+ + !GSV Thigh !Yes !Yes !None !Phasic!No ! ! + + + + +------+------+ + !Common !Yes !Yes !None !Phasic!No ! ! !Femoral ! ! ! ! ! ! ! + + + + +------+------+ + !Prox !Yes !Yes !None !Phasic!No ! ! !Femoral ! ! ! ! ! ! ! + + + + +------+------+ + !Mid Femoral!Yes !Yes !None !Phasic!No ! ! + + + + +------+------+ + !Dist !Yes !Yes !None !Phasic!No ! ! !Femoral ! ! ! ! ! ! ! + + + + +------+------+ + !Popliteal !Yes !Partial !Chronic !Phasic!No ! ! + + + + +------+------+ + !Gastroc !Yes !Yes !None !Phasic!No ! ! + + + + +------+------+ + !PTV !Yes !Partial !Chronic !Phasic!No ! ! + + + + +------+------+ + !Peroneal !Yes !Partial !None !Phasic!No ! ! + + + + +------+------+ + Left Lower Extremities DVT Study Measurements Left 2D and Doppler Measurements + + + + +------+------+ + !Location !Visualized!Compressibility!Thrombosis!Signal!Reflux!Reflux ! ! ! ! ! ! ! !(sec) ! + + + + +------+------+ + !GSV Thigh !Yes !Yes !None !Phasic!No ! ! + + + + +------+------+ + !Common !Yes !Yes !None !Phasic!No ! ! !Femoral ! ! ! ! ! ! ! + + + + +------+------+ + !Prox !Yes !Yes !None !Phasic!No ! ! !Femoral ! ! ! ! ! ! ! + + + + +------+------+ + !Mid Femoral!Yes !Yes !None !Phasic!No ! ! + + + + +------+------+ + !Dist !Yes !Yes !None !Phasic!No ! ! !Femoral ! ! ! ! ! ! ! + + + + +------+------+ + !Popliteal !Yes !Yes !None !Phasic!No ! ! + + + + +------+------+ + !Gastroc !Yes !Yes !None !Phasic!No ! ! + + + + +------+------+ + !PTV !Yes !Yes !None !Phasic!No ! ! + + + + +------+------+ + !Peroneal !Yes !Yes !None !Phasic!No ! ! + + + + +------+------+ + Signature dtt: CINDI MASON dtd: 07/27/17 1132 Physician Self [place]
--- NOTE | ~2017-07-26 | DS ---
PATIENT'S NAME: FLOR IVEY [facility] AGE: 66 Y [address] ROOM: [address] [address] LOCATION: [facility] ADMIT DATE: 07/29/2017 Discharge Summary DISCHARGE DATE: 07/31/2017 FAMILY PHYSICIAN: Ladan Galeana MD ATTENDING PHYSICIAN: Ladan Galeana [facility] COURSE: Ms. 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 This I think is the third hospitalization for this particular problem. At this time, Dr. Lane has been giving her Lupron to see whether or not the tumor would respond to that since it really has not responded to much else. His thought, of course, is the fact that the Rivanna's gland and the prostatic tissue originate from the same area during development. The patient's blood counts are actually better than they have been at the time of admission, and white count, hemoglobin, and platelets were in the normal range, which made things easier on the patient at this time. I gave her fluids and I had Dr. Ashley visit with the patient about what he felt would be appropriate therapy, and he felt that at this time, we should try some fulguration of the bleeders and see if the cautery could possibly slow this process down. After two miserable days of being prepped and not getting cleaned out the first day, the patient was taken to the operating room, and Dr. Ashley felt that he did indeed cauterize some of the bleeders, and hopefully, this will slow the process down for her. Earlier in hospitalization, Flor had some issues with kalemia, which we were easily able to control; and some hypocalcemia, which was not so easy to control, but we are working on it. She is having some severe issues with swelling at this time, both intra-abdominal and extremities, which I tried some Lasix on, which is of course a dual-edged sword when we are dry, but yet we have accumulation of fluid that we are trying to get rid of, so it is a fine line to walk. In addition, the patient's functional capacity is getting less and less all the time because of her weakening physical state. She has been spending most of her time in bed, not getting up, and then about three times a week, they travel to Dr. Lane's office for fluids and I think this is very tiring for her. At our suggestion, Dr. Lane, Dr. Barrera, and I, patient did visit on two different occasions with [facility], and finally decided that that might be worth a try. The patient is going to have [facility] with hospice visit her at home, and hopefully, they would be able to administer the fluids, draw blood, and cut down on the tiring trips to [place] and perhaps enable her to get up and be a little more active around the house, maybe out in the yard or on chairs or whatever. Supposedly they are going to put up a swimming pool and hopefully get her out and move around a little bit and I think these things are all good. She is going home at this time with still a low calcium. I am going to start her on some calcium tablets. I have some ideas about trying to PATIENT'S NAME: FLOR IVEY [facility] AGE: 66 Y [address] ROOM: [place] [id number] LOCATION: [facility] ADMIT DATE: 07/29/2017 Discharge Summary DISCHARGE DATE: 07/31/2017 FAMILY PHYSICIAN: Ladan Galeana MD ATTENDING PHYSICIAN: Ladan Galeana control this rectal bleeding if it restarts and we visited about that, and going to support her in every way with hospice on board, an excellent opportunity for her. We will follow her as needed. Dr. Lane said that currently, she is getting Lupron every three months, so actually it will not be mandatory for her to go to his office in [place] as often as she has been doing. I think that is a positive situation for her too. We will try to do the chemistry panels at their house and the hospice can report them to me. She lives about five or six miles from my home. If need be, I can stop at the house if it so dictates. 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 Also, the day before dismissal, as her and I were visiting, she said that she lost the vision in her right eye for about five minutes, and of course, that was very disconcerting. I did an MRI, and the MRI showed a number of vascular events in the patient's head, but thankfully no metastatic disease. FINAL DIAGNOSES: 1. Rivanna's gland cancer with metastases, anasarca edema, a number of vascular occlusive issues. 2. Hypokalemia. 3. Hypernatremia. 4. Rectal bleeding, which was effectively hopefully dealt with by Dr. Ashley. LADAN GALEANA MD JBEN/katarzynal /[id number] d: 08/01/17 0535 t: 08/01/17 1423, DISCHARGE SUMMARY
[~2017-07-26 13:05] MED LIST changes: -ASPIR-TRIN325 MG PO; -ASPIRIN325 MG PO; -CORRECTOL5 MG PO; -DELTASONE5 MG PO; -FLAGYL500 MG PO; -LASIX40 MG PO; -MS CONTIN15 MG PO; -OSCAL500 MG PO; -PAIN RELIEVER325 MG PO; -PROTONIX40 MG PO; -SLEEP AID25 M1 PO; -SLOW-MAG (64 MG1 TAB PO; -STOOL SOFTENER100 MG PO; -TYLENOL325 MG PO; -VANCOMYCIN125 MG/2.5 PO
[2017-07-26 13:37] LABS: HEMOGLOBIN 9.6 g/dL (10.0-15.0); MCV 87.5 fl (83.0-98.0); MPV 10.7 fl (9.4-12.4); PLATELET COUNT 198 K/uL (150-450); RBC 3.43 M/uL (3.50-5.50); RDW-CV 19.4 % (11.9-14.6); WBC 3.6 K/uL (4.0-11.0)
[2017-07-26 13:43] LABS: INR - (THERAPEUTIC) 1.24 (0.92-1.07); PTT 27 SECONDS (25-32)
[2017-07-26 13:59] LABS: ALK PHOS 264 IU/L (33-138); ALT 26 IU/L (12-78); ANION GAP 12.4 (10.0-19.0); AST 61 IU/L (10-40); BLOOD UREA NITROGEN 8 mg/dL (6-24); CHLORIDE 109 mMol/L (96-110); CO2 21 mMol/L (22-32); CREATININE 0.5 mg/dL (0.5-1.1); POTASSIUM 3.4 mMol/L (3.7-5.1); SODIUM 139 mMol/L (135-145); TOTAL BILIRUBIN 0.6 mg/dL (0.0-1.5); TOTAL PROTEIN 5.2 g/dL (6.0-8.4)
[2017-07-26 14:04] LABS: ALBUMIN 1.9 gm/dL (3.5-5.0); CALCIUM 6.2 mg/dL (8.5-10.5)
[2017-07-26 14:08] LABS: LYMPHOCYTE # 0.3 K/uL (0.8-4.0); LYMPHOCYTE % 9 %; MONOCYTE # 0.3 K/uL (0.0-1.0); SEGMENTED NEUTROPHIL # 2.8 K/uL (1.8-7.8); SEGMENTED NEUTROPHIL % 79 %
[2017-07-26 14:09] LABS: ABSOLUTE NEUTROPHIL CT (ANC) 2.9 K/uL (1.8-7.8); BANDED NEUTROPHIL # 0.1 K/uL (0.0-0.1); BANDED NEUTROPHILS % 2 %
[2017-07-26] MEDS ORDERED: DELTASONE5 MG PO (16:23)
[2017-07-26] MEDS ORDERED: ASPIR-TRIN325 MG PO (16:24)
[2017-07-27 05:09] LABS: BASOPHIL % 0.2 %; HEMATOCRIT 29.1 % (33.0-46.0); HEMOGLOBIN 9.3 g/dL (10.0-15.0); IMMATURE GRANULOCYTE % 0.4 %; LYMPHOCYTE # 0.7 K/uL (0.8-4.0); MCH 27.6 pg (27.0-34.0); MCV 86.4 fl (83.0-98.0); MONOCYTE # 0.8 K/uL (0.0-1.0); MONOCYTE % 14.2 %; MPV 10.1 fl (9.4-12.4); NEUTROPHIL % 72.2 %; NRBC % 0 /100WBC (0-0.00); PLATELET COUNT 203 K/uL (150-450); RBC 3.37 M/uL (3.50-5.50); RDW-CV 19.3 % (11.9-14.6); WBC 5.6 K/uL (4.0-11.0)
[2017-07-28 08:06] LABS: ALK PHOS 242 IU/L (33-138); ALT 26 IU/L (12-78); ANION GAP 10.2 (10.0-19.0); AST 50 IU/L (10-40); BLOOD UREA NITROGEN 6 mg/dL (6-24); CHLORIDE 113 mMol/L (96-110); CO2 24 mMol/L (22-32); CREATININE 0.4 mg/dL (0.5-1.1); POTASSIUM 3.2 mMol/L (3.7-5.1); SODIUM 144 mMol/L (135-145); TOTAL BILIRUBIN 0.6 mg/dL (0.0-1.5)
[2017-07-28 08:14] LABS: ALBUMIN 1.9 gm/dL (3.5-5.0); CALCIUM 6.1 mg/dL (8.5-10.5); TOTAL PROTEIN 4.9 g/dL (6.0-8.4)
[2017-07-28 08:15] LABS: HEMATOCRIT 27.4 % (33.0-46.0); HEMOGLOBIN 8.8 g/dL (10.0-15.0); MCH 27.9 pg (27.0-34.0); MCHC 32.1 gm/dL (32.0-36.5); PLATELET COUNT 173 K/uL (150-450); RBC 3.15 M/uL (3.50-5.50); RDW-CV 19.7 % (11.9-14.6); WBC 3.2 K/uL (4.0-11.0)
[2017-07-28 09:27] LABS: ABSOLUTE NEUTROPHIL CT (ANC) 2.4 K/uL (1.8-7.8); BANDED NEUTROPHILS % 1 %; LYMPHOCYTE # 0.5 K/uL (0.8-4.0); LYMPHOCYTE % 17 %; MONOCYTE # 0.2 K/uL (0.0-1.0); SEGMENTED NEUTROPHIL # 2.4 K/uL (1.8-7.8); SEGMENTED NEUTROPHIL % 74 %
[2017-07-29 06:49] LABS: ALK PHOS 195 IU/L (33-138); ALT 20 IU/L (12-78); ANION GAP 9.4 (10.0-19.0); AST 36 IU/L (10-40); BLOOD UREA NITROGEN 4 mg/dL (6-24); CHLORIDE 113 mMol/L (96-110); CO2 24 mMol/L (22-32); CREATININE 0.3 mg/dL (0.5-1.1); POTASSIUM 3.4 mMol/L (3.7-5.1); SODIUM 143 mMol/L (135-145); TOTAL BILIRUBIN 0.6 mg/dL (0.0-1.5)
[2017-07-29 06:53] LABS: ALBUMIN 1.6 gm/dL (3.5-5.0); CALCIUM 5.8 mg/dL (8.5-10.5); TOTAL PROTEIN 4.3 g/dL (6.0-8.4)
[2017-07-29 06:57] LABS: BASOPHIL % 0.7 %; EOSINOPHIL # 0.1 K/uL (0.0-0.5); EOSINOPHIL % 2.1 %; HEMATOCRIT 24.8 % (33.0-46.0); IMMATURE GRANULOCYTE % 0.5 %; LYMPHOCYTE # 0.6 K/uL (0.8-4.0); LYMPHOCYTE % 13.2 %; MCH 27.8 pg (27.0-34.0); MCHC 31.5 gm/dL (32.0-36.5); MCV 88.3 fl (83.0-98.0); MONOCYTE # 0.8 K/uL (0.0-1.0); MONOCYTE % 17.7 %; MPV 10.6 fl (9.4-12.4); NEUTROPHIL # (ANC) 2.8 K/uL (1.8-7.8); NEUTROPHIL % 65.8 %; NRBC % 0 /100WBC (0-0.00); PLATELET COUNT 150 K/uL (150-450); RBC 2.81 M/uL (3.50-5.50); RDW-CV 19.3 % (11.9-14.6); WBC 4.2 K/uL (4.0-11.0)
[2017-07-29 06:58] LABS: HEMOGLOBIN 7.8 g/dL (10.0-15.0)
[2017-07-30 05:14] LABS: ALK PHOS 194 IU/L (33-138); ALT 19 IU/L (12-78); AST 33 IU/L (10-40); BLOOD UREA NITROGEN 5 mg/dL (6-24); CHLORIDE 110 mMol/L (96-110); CO2 24 mMol/L (22-32); CREATININE 0.4 mg/dL (0.5-1.1); SODIUM 141 mMol/L (135-145)
[2017-07-30 05:18] LABS: ALBUMIN 1.6 gm/dL (3.5-5.0); TOTAL BILIRUBIN 0.8 mg/dL (0.0-1.5); TOTAL PROTEIN 4.3 g/dL (6.0-8.4)
[2017-07-30 05:20] LABS: EOSINOPHIL # 0.1 K/uL (0.0-0.5); EOSINOPHIL % 3.2 %; HEMATOCRIT 25.4 % (33.0-46.0); IMMATURE GRANULOCYTE % 0.7 %; LYMPHOCYTE # 0.7 K/uL (0.8-4.0); LYMPHOCYTE % 16.1 %; MCH 27.1 pg (27.0-34.0); MCHC 31.1 gm/dL (32.0-36.5); MCV 87.3 fl (83.0-98.0); MONOCYTE # 0.6 K/uL (0.0-1.0); MONOCYTE % 15.1 %; MPV 10.3 fl (9.4-12.4); NEUTROPHIL # (ANC) 2.6 K/uL (1.8-7.8); NEUTROPHIL % 63.9 %; NRBC % 0 /100WBC (0-0.00); PLATELET COUNT 154 K/uL (150-450); RBC 2.91 M/uL (3.50-5.50); RDW-CV 19.4 % (11.9-14.6)
[2017-07-30 05:28] LABS: HEMOGLOBIN 7.9 g/dL (10.0-15.0)
[2017-07-30] MEDS ORDERED: FLAGYL500 MG PO (09:11)
[2017-07-30] MEDS ORDERED: LASIX40 MG PO (09:11)
[2017-07-30] MEDS ORDERED: OSCAL500 MG PO (09:18)
[2017-07-30] MEDS ORDERED: CORRECTOL5 MG PO (09:24)
[2017-07-30] MEDS ORDERED: SLEEP AID25 M1 PO (09:24)
[2017-07-30] MEDS ORDERED: SLOW-MAG (64 MG1 TAB PO (09:24)
[2017-07-30] MEDS ORDERED: VANCOMYCIN125 MG/2.5 PO (09:24)
[2017-07-30] MEDS ORDERED: STOOL SOFTENER100 MG PO (09:24)
[2017-07-30] MEDS ORDERED: PROTONIX40 MG PO (09:24)
[2017-07-30] MEDS ORDERED: MS CONTIN15 MG PO (09:24)
[2017-07-30] MEDS ORDERED: TYLENOL325 MG PO (09:24)
[2017-07-30] MEDS ORDERED: PAIN RELIEVER325 MG PO (09:28)
[2017-07-31 06:12] LABS: BASOPHIL # 0.1 K/uL (0.0-0.2); BASOPHIL % 1.4 %; EOSINOPHIL # 0.1 K/uL (0.0-0.5); EOSINOPHIL % 3.3 %; HEMATOCRIT 25.5 % (33.0-46.0); HEMOGLOBIN 8.1 g/dL (10.0-15.0); IMMATURE GRANULOCYTE % 0.6 %; LYMPHOCYTE # 0.6 K/uL (0.8-4.0); LYMPHOCYTE % 16.9 %; MCH 27.5 pg (27.0-34.0); MCHC 31.8 gm/dL (32.0-36.5); MCV 86.4 fl (83.0-98.0); MONOCYTE # 0.6 K/uL (0.0-1.0); MONOCYTE % 17.8 %; MPV 10.9 fl (9.4-12.4); NEUTROPHIL # (ANC) 2.2 K/uL (1.8-7.8); NRBC % 0 /100WBC (0-0.00); PLATELET COUNT 164 K/uL (150-450); RBC 2.95 M/uL (3.50-5.50); RDW-CV 19.3 % (11.9-14.6); WBC 3.6 K/uL (4.0-11.0)
[2017-07-31 07:06] LABS: SODIUM 141 mEq/L (135-145)
[2017-07-31 07:07] LABS: ALBUMIN 1.5 gm/dL (3.5-5.0); ANION GAP 10.3 (10.0-19.0); BLOOD UREA NITROGEN 5 mg/dL (6-24); CALCIUM 5.8 mg/dL (8.5-10.5); CHLORIDE 109 mMol/L (96-110); CO2 25 mMol/L (22-32); CREATININE 0.3 mg/dL (0.5-1.1); POTASSIUM 3.3 mEq/L (3.7-5.1); TOTAL PROTEIN 4.3 g/dL (6.0-8.4)
[2017-07-31 07:08] LABS: ALK PHOS 197 IU/L (33-138); ALT 17 IU/L (12-78); AST 32 IU/L (10-40); TOTAL BILIRUBIN 0.5 mg/dL (0.0-1.5)
[2017-07-31] MEDS ORDERED: ASPIRIN325 MG PO (09:20)
== END 2017-07-31 11:00 | disposition hospice, home (50) | DRG 755 ==
LOC: GMED 13:05 → GMSU 15:08
PROVIDERS: Emergency Medicine; ADMIT Family Medicine
PROC: 0DJD8ZZ Inspection of Lower Intestinal Tract, Via Natural or Artificial Opening Endoscopic (ICD-10-PCS; principal; 2017-07-28)
DX: C79.82 Secondary malignant neoplasm of genital organs (principal); R18.0 Malignant ascites; E87.0 Hyperosmolality and hypernatremia; I82.433 Acute embolism and thrombosis of popliteal vein, bilateral; K62.5 Hemorrhage of anus and rectum; Z51.5 Encounter for palliative care; E83.51 Hypocalcemia; K62.7 Radiation proctitis; E87.6 Hypokalemia; Z98.84 Bariatric surgery status; Z79.82 Long term (current) use of aspirin; Z90.710 Acquired absence of both cervix and uterus; Z92.21 Personal history of antineoplastic chemotherapy; Z92.3 Personal history of irradiation; Z85.41 Personal history of malignant neoplasm of cervix uteri; Z85.42 Personal history of malignant neoplasm of other parts of uterus
CPT/HCPCS: G0378; J0610; J1642; J1940; J2405; J3480; J7030; J7040; J7512